=== PATIENT | male | born 1960 | race Caucasian/White ===

== ENCOUNTER 2020-05-25 10:11 | Outpatient (REF) | payer MEDICAID, SELFPAY | END 2020-05-25 10:12 | disposition home or self-care (01) | LOC: HO.LAB 10:11 | PROVIDERS: Visit Provider Internal Medicine | DX: Z20.828 Contact with and (suspected) exposure to other viral communicable diseases (principal) | CPT/HCPCS: C9803; U0003 ==

== ENCOUNTER 2021-02-16 08:14 | Emergency (ER) | payer OTHER, SELFPAY ==
--- NOTE | ~2021-02-16 | XR_ITS ---
EXAMINATION: RIGHT ANKLE, RIGHT FOOT AND RIGHT KNEE. CLINICAL INFORMATION: Pain. COMPARISON: None TECHNIQUE: 4 views right knee. 3 views right foot. 2 views right ankle. FINDINGS: Right knee: There is minimal loss of patellofemoral and medial compartment joint space. No periarticular spurring, loose bodies or bony erosive changes. No abnormal joint effusion. No acute fracture or dislocation. Right ankle: The ankle mortise and subtalar joints are normal. There is a small avulsion fracture fragment tip of anterior malleolus. The soft tissues are normal. Right foot: There is no visible acute fracture, dislocation or subluxation. The soft tissues are normal. XR/XR ankle RT min 3V IMPRESSION: Mild degenerative changes medial and patellofemoral compartment right knee. Small avulsion fracture fragment tip of anterior malleolus. Otherwise unremarkable right ankle exam. Unremarkable right foot exam.
--- NOTE | ~2021-02-16 | XR_ITS ---
EXAMINATION: RIGHT ANKLE, RIGHT FOOT AND RIGHT KNEE. CLINICAL INFORMATION: Pain. COMPARISON: None TECHNIQUE: 4 views right knee. 3 views right foot. 2 views right ankle. FINDINGS: Right knee: There is minimal loss of patellofemoral and medial compartment joint space. No periarticular spurring, loose bodies or bony erosive changes. No abnormal joint effusion. No acute fracture or dislocation. Right ankle: The ankle mortise and subtalar joints are normal. There is a small avulsion fracture fragment tip of anterior malleolus. The soft tissues are normal. Right foot: There is no visible acute fracture, dislocation or subluxation. The soft tissues are normal. XR/XR foot RT min 3V IMPRESSION: Mild degenerative changes medial and patellofemoral compartment right knee. Small avulsion fracture fragment tip of anterior malleolus. Otherwise unremarkable right ankle exam. Unremarkable right foot exam.
--- NOTE | ~2021-02-16 | XR_ITS ---
EXAMINATION: RIGHT ANKLE, RIGHT FOOT AND RIGHT KNEE. CLINICAL INFORMATION: Pain. COMPARISON: None TECHNIQUE: 4 views right knee. 3 views right foot. 2 views right ankle. FINDINGS: Right knee: There is minimal loss of patellofemoral and medial compartment joint space. No periarticular spurring, loose bodies or bony erosive changes. No abnormal joint effusion. No acute fracture or dislocation. Right ankle: The ankle mortise and subtalar joints are normal. There is a small avulsion fracture fragment tip of anterior malleolus. The soft tissues are normal. Right foot: There is no visible acute fracture, dislocation or subluxation. The soft tissues are normal. XR/XR knee RT 4V IMPRESSION: Mild degenerative changes medial and patellofemoral compartment right knee. Small avulsion fracture fragment tip of anterior malleolus. Otherwise unremarkable right ankle exam. Unremarkable right foot exam.
[2021-02-16 08:43] VITALS: BP 128/79; PULSE 78; RESP 18; TEMP 37.1; O2SAT 98; BMI 30.9
--- NOTE | 2021-02-16 09:28 | ED_ITS ---
HPI - Back Pain/Injury General Chief Complaint: Back Pain/Injury Stated Complaint: right leg pain Time Seen by Provider: 02/16/21 08:45 Source: patient Mode of arrival: ambulatory Limitations: language barrier (Hungarian-speaking) History of Present Illness HPI Narrative: 60-year-old male with a past medical history of hyperlipidemia, asthma, obstructive sleep apnea was dependent on CPAP and chronic back pain with prior back surgery being followed by [facility] presenting to the ED with complaints of acute on chronic right lower back pain radiating to his right knee/foot or the past few weeks worse today. Reports that he currently takes multiple medications which includes Motrin, Tylenol, gabapentin, tramadol and multiple other medications prescribed by his PCP and his title curative specialist although no symptomatic relief. Reports that he was getting spinal injections and then last injection was approximately 4-6 months ago. He was also referred to physical therapy although once he started physical therapy he felt like his pain was worsening therefore he is no longer doing physical therapy and is awaiting his title curative specialist for further treatment options. He reports a 2-3 weeks ago he dropped a radio on his right ankle/foot and has had a little pain/swelling at that site although he was already having worsening back pain radiating to the right knee/ankle/foot before dropping the radio on his ankle/foot. He denies any recent falls or any other injuries complaints or concerns at this time. He denies any urinary or bowel incontinence or retention He denies history of cancer. He denies history of drug usage including IV drug usage. He denies any fevers. He denies any rashes. He denies any abdominal pain or hematuria. Patient denies any other s ymptoms complaints or concerns at this time. MD elicited complaint: back pain Pertinent past history: prior back pain and back surgery Onset (ago): day(s) Timing: constant and progressively worsening Severity: severe Pain scale (0-10): 10 Similar Symptoms Previously: Yes Quality: sharp Location: lumbar spine and right lower back Radiation: right upper leg and right leg below the knee Exacerbating factors: movement and walking Relieving factors: none Associated symptoms: denies other symptoms Treatments prior to arrival: NSAIDS, acetaminophen, ASA, other medications and prescription analgesics Work related injury: No Related Data Previous Rx's Medication Instructions Recorded oxycodone 5 mg tablet 5 mg PO BID PRN #10 tab 02/16/21 Allergies Allergy/AdvReac Type Severity Reaction Status Date / Time No Known Allergies Allergy Unverified 03/23/20 17:33 [No Known Allergies*] Review of Systems Review of Systems: Constitutional : No trauma, No Weight loss, No Fever, No Chills, ENT/Mouth : No Hearing loss, No Ear Pain, No Nasal Congestion, No Sinus Pain, No Hoarseness, No sore throat, No Rhinorrhea, No Swallowing Difficulty Cardiovascular : No Chest Pain, No SOB Respiratory : No Cough, No Dyspnea Gastrointestinal : No Nausea, No Vomiting, No Diarrhea, No abdominal Pain, No Hematochezia, No Melena Genitourinary : No Dysuria, No Urinary Frequency, No Hematuria, No Urinary or Bowel Incontinence/retention Musculoskeletal : + Back pain, No neck pain, No joint stiffness, No joint swelling Skin : No Skin Lesions, No rash or signs of infection Neuro : No Weakness, No radiation, No Numbness, No Paresthesias, No headache, no loss of bowel or bladder incontinence, no saddle anesthesia, Focal weakness, No radiation Denies history of IV drug usage. Yes all other systems are reviewed and are negative [facility] Past Medical History Attestation statement: The following information was validated with the patient. Medical History Asthma Back pain Back pain with history of spinal surgery Surgical History History of appendectomy Social History Social History Alcohol intake: never Smoked in Last 30 Days: No Use of substances other than those prescribed or required for medical reasons: No Advance Directives: Yes Advance Directives on File: Yes Advance Directives Date on File: 02/16/21 Physical Exam Vital Signs: Vital Signs: Last Vital Signs Temp 98.8 F 02/16/21 08:43 Pulse 78 02/16/21 08:43 Resp 18 02/16/21 08:43 BP 128/79 02/16/21 08:43 Pulse Ox 98 02/16/21 08:43 Body Mass Index 30.9 vital signs have been reviewed as normal and appeared to be correct. Blood pressure normal. Heart rate normal. Respiration rate normal. Temperature normal. Oxygen saturation normal. Appearance: Alert. Oriented X3. No acute distress. Head: Normal external exam. Normocephalic. Atraumatic. No Castillo signs noted. No raccoon eyes noted Eyes: PERRLA. EOMI. Conjunctiva and sclera normal. Eyelids normal. ENT: EAC normal. TM's Normal. Pharynx normal. Uvula midline. Moist mucous membranes. No trismus noted. No drooling noted. No muffled voice noted. Neck: Normal inspection. Neck supple. FROM. No adenopathy. Thyroid Normal. No meningeal signs. No neck mass noted. CVS: Normal heart rate and rhythm. Heart sound normal. No murmurs noted. Pulses normal throughout. Respiratory: No respiratory distress. Painless inspiration. Breath sounds normal. No wheezes/rales/rhonchi noted. Chest nontender. No accessory muscle usage noted or decreased air movement noted. Abdomen: Soft and nontender. Bowel sounds normal in all 4 quadrants. No distention noted. No organomegaly noted. No visible injury noted. Back: No CVA tenderness. Full range of motion noted. No obvious deformities, or edema. Mild para-spinal muscular tenderness from lumbar region to coccyx. Full ROM in back and lower extremities. 5/5 strength hip extension/flexion, abduction, adduction. Mild Lumbar pain with hip flexion against resistance. Straight leg raise test negative on right; Straight leg raise test negative on left; Reflexes normal ankle and knee bilaterally; EHL motor strength normal bilaterally. No rashes/lesion/induration/fluctuance or signs infection noted. Skin: Skin warm and dry. Normal skin color. Normal skin turgor. No rashes/lesions/lacerations noted. Extremities: Patient mild tenderness to palpation to right ankle joint at the anterior aspect with mild soft tissue swelling. No ligamentous laxity noted to right knee/ankle/foot joint. No signs of infection to those joints. Patient has full range of motion of right knee/ankle/foot joint. No lower extremity edema. Otherwise all other Extremities exhibit normal range of motion and nontender. Neuro: Oriented X 3. No motor deficit. No sensory deficit. Reflexes normal. Patient has a normal steady gait. Course Course Course Narrative: Pt c likely muscular pain, but could be herniated disc. Neuro exam shows no deficits. Not c/w AAA/epidural abscess/dissection.No high risk Hx (Incont, fever, immunosupp, recent surgery/LP, coag, signif trauma, wt loss, puls mass, hx/o Ca, TB, or IVDU) to warrant MRI/CT today. Not c/w Pyelo/UTI/kidney stone/spinal fx. Not cauda equina syndrome. Will obtain an x- ray of the right knee/foot/ankle as patient dropped the radio to that joint x 3 weeks ago. If negative will DC c meds and f/u. Reevaluation(s) Reevaluation #1: Ankle revealed small avulsion fracture fragment tip of anterior malleolus otherwise unremarkable right ankle. Unremarkable right foot. Mild degenerative changes medial and patellofemoral compartment right knee otherwise no other acute processes. Therefore I explained to the patient when he dropped the radio on his ankle/foot most likely he sustained this fracture. Will place in an ortho boot and treat symptomatic we will refer to Orthopedic and instructions return if any new or worsening symptoms. Patient understands agrees with this plan. Time: 09:50 MDM - Back Pain/Injury Differential Diagnosis Differential diagnosis: Likely lumbar radiculopathy, sciatica and strain of lumbar region Medical Records Attestation: I reviewed the patient's medical records. Imaging Data Right knee/ankle/foot x-ray: Attestation: I personally reviewed and interpreted this imaging study as follows: Radiologist's impression: FINDINGS: Right knee: There is minimal loss of patellofemoral and medial compartment joint space. No periarticular spurring, loose bodies or bony erosive changes. No abnormal joint effusion. No acute fracture or dislocation. Right ankle: The ankle mortise and subtalar joints are normal. There is a small avulsion fracture fragment tip of anterior malleolus. The soft tissues are normal. Right foot: There is no visible acute fracture, dislocation or subluxation. The soft tissues are normal. XR/XR knee RT 4V IMPRESSION: Mild degenerative changes medial and patellofemoral compartment right knee. ? Small avulsion fracture fragment tip of anterior malleolus. Otherwise unremarkable right ankle exam. ? Unremarkable right foot exam.? Discharge Plan Discharge Clinical Impression: Lumbar radiculopathy, Ankle fracture Patient Disposition: Home, Self-Care Instructions: Ankle Fracture (ED), Lumbar Radiculopathy (ED), Lower Back Exercises (ED), Walking Boot (ED) Prescriptions: New oxycodone 5 mg tablet 5 mg PO BID PRN (Reason: pain) Qty: 10 RF: 0 Referrals: Jazmyne Snyder MD [Physician] - 2 days Print Language: Hungarian
== END 2021-02-16 10:30 | disposition home or self-care (01) ==
PROVIDERS: Emergency Provider Emergency Medicine
DX: S82.891A Other fracture of right lower leg, initial encounter for closed fracture (principal); M54.16 Radiculopathy, lumbar region; M79.604 Pain in right leg; M25.571 Pain in right ankle and joints of right foot; X58.XXXA Exposure to other specified factors, initial encounter; Y93.9 Activity, unspecified; Y92.9 Unspecified place or not applicable; Y99.9 Unspecified external cause status
CPT/HCPCS: 73564; 73610; 73630; 99283; 99284

== ENCOUNTER 2021-03-02 09:59 | Outpatient (REF) | payer OTHER, SELFPAY ==
--- NOTE | ~2021-03-02 | XR_ITS ---
EXAMINATION: XR ANKLE, RIGHT CLINICAL INFORMATION: Ankle pain. COMPARISON: 02/16/2021 TECHNIQUE: AP, lateral, and mortise views of the right ankle. FINDINGS: The small chip fracture of the anterior malleolus is not as well seen as it was on the 02/16/2021 study. The exam is otherwise unremarkable. No abnormality is seen in the area of the patient's lateral ankle pain. XR/XR ankle RT min 3V IMPRESSION: Small chip fracture anterior malleolus as described above. No other abnormality seen.
== END 2021-03-02 10:00 | disposition home or self-care (01) ==
LOC: HO.XRAY 09:59
PROVIDERS: PCP Physician Assistant Medical; Visit Provider Physician Assistant
DX: S93.401A Sprain of unspecified ligament of right ankle, initial encounter (principal)
CPT/HCPCS: 73610; 99202

== ENCOUNTER 2021-04-06 07:06 | Outpatient (REF) | payer OTHER, SELFPAY | END 2021-04-06 07:07 | disposition home or self-care (01) | LOC: HO.HOSX 07:06 | PROVIDERS: Visit Provider Physician Assistant | DX: Z13.89 Encounter for screening for other disorder (principal) ==

== ENCOUNTER 2021-06-22 12:08 | Outpatient (REF) | payer OTHER, SELFPAY ==
[2021-06-22 15:17] LABS: COVID-19 Test Negative (Negative); IDNOW Serial# 16C4AD1C
== END 2021-06-22 12:09 | disposition home or self-care (01) ==
LOC: HO.LAB 12:08
PROVIDERS: Visit Provider Internal Medicine
DX: Z20.822 Contact with and (suspected) exposure to COVID-19 (principal)
CPT/HCPCS: 36415; 87635; C9803

== ENCOUNTER 2021-07-02 12:02 | Outpatient (REF) | payer OTHER, SELFPAY | END 2021-07-02 12:03 | disposition home or self-care (01) | LOC: HO.LAB 12:02 | PROVIDERS: Visit Provider Internal Medicine | DX: Z20.822 Contact with and (suspected) exposure to COVID-19 (principal) | CPT/HCPCS: C9803; U0003; U0005 ==

== ENCOUNTER 2021-07-09 10:56 | Outpatient (REF) | payer OTHER, SELFPAY ==
[2021-07-09 11:47] LABS: COVID-19 Test Negative (Negative)
== END 2021-07-09 10:57 | disposition home or self-care (01) ==
LOC: HO.LAB 10:56
PROVIDERS: Visit Provider Internal Medicine
DX: Z20.822 Contact with and (suspected) exposure to COVID-19 (principal)
CPT/HCPCS: 36415; 87635; C9803

== ENCOUNTER 2023-06-15 17:46 | Emergency (ER) | payer MEDICARE, MEDICAID, SELFPAY ==
--- NOTE | ~2023-06-15 | XR_ITS ---
EXAMINATION: XR ANKLE, LEFT XR TIBIA AND FIBULA, LEFT CLINICAL INFORMATION: Pain COMPARISON: None TECHNIQUE: AP, lateral, and mortise views of the left ankle. AP and lateral views of the left tibia and fibula FINDINGS: Left tibia and fibula: Soft tissues are swollen diffusely. Bautista B distal fibular fracture and a medial malleolar fracture with mild displacement. There is more focal surrounding soft tissue swelling. No additional fractures are identified. Imaged portion of knee joint is unremarkable. Left ankle: Lateral malleolar fragment at the Bautista B distal fibular fracture is displaced posteriorly up to 5 mm . Fragment is minimally displaced (1 to 2 mm). There is widening at the medial ankle mortise. Soft tissues are swollen at the ankle. Incidental note is made of a lucent 1.4 cm focus in the distal fibular shaft with scalloping of the medial endosteal cortex. XR/XR ankle LT 2V IMPRESSION: 1. Mildly displaced Bautista B distal fibular fracture. 2. Minimally displaced medial malleolar fracture. 3. Widening of the medial ankle mortise. 4. A 1.4 cm lucent focus in the distal fibular shaft with scalloping of the medial endosteal cortex. Consider obtaining a CT of the ankle to include the lesion in the distal fibular diaphysis, both for surgical planning of the aforementioned fracture and for lesion assessment.
--- NOTE | ~2023-06-15 | XR_ITS ---
EXAMINATION: XR ANKLE, LEFT XR TIBIA AND FIBULA, LEFT CLINICAL INFORMATION: Pain COMPARISON: None TECHNIQUE: AP, lateral, and mortise views of the left ankle. AP and lateral views of the left tibia and fibula FINDINGS: Left tibia and fibula: Soft tissues are swollen diffusely. Bautista B distal fibular fracture and a medial malleolar fracture with mild displacement. There is more focal surrounding soft tissue swelling. No additional fractures are identified. Imaged portion of knee joint is unremarkable. Left ankle: Lateral malleolar fragment at the Bautista B distal fibular fracture is displaced posteriorly up to 5 mm . Fragment is minimally displaced (1 to 2 mm). There is widening at the medial ankle mortise. Soft tissues are swollen at the ankle. Incidental note is made of a lucent 1.4 cm focus in the distal fibular shaft with scalloping of the medial endosteal cortex. XR/XR tibia fibula LT 2V IMPRESSION: 1. Mildly displaced Bautista B distal fibular fracture. 2. Minimally displaced medial malleolar fracture. 3. Widening of the medial ankle mortise. 4. A 1.4 cm lucent focus in the distal fibular shaft with scalloping of the medial endosteal cortex. Consider obtaining a CT of the ankle to include the lesion in the distal fibular diaphysis, both for surgical planning of the aforementioned fracture and for lesion assessment.
--- NOTE | ~2023-06-15 | XR_ITS ---
EXAMINATION: XR HIP, LEFT CLINICAL INFORMATION: Fall. Pain. COMPARISON: None available. TECHNIQUE: AP and frog-leg lateral views of the left hip. AP view of the pelvis. FINDINGS: Minimal osteoarthritis is present in the hips, right greater than left, with small marginal osteophytes. Subchondral cystic changes present at the right acetabulum. No fractures are identified. Bone mineralization is normal. Mild osteoarthritis in the SI joints. There is Castellvi type IIA transitional anatomy on the right at the lumbosacral junction. Fusion hardware in the lower lumbar spine at L4-L5. Spinal stimulator unit overlies the left hemipelvis. No acute soft tissue findings. XR/XR hip LT w PEL1V IMPRESSION: 1. Minimal osteoarthritis in the hips, right greater than left. No acute fracture or malalignment. 2. Mild osteoarthritis in the SI joints.
--- NOTE | ~2023-06-15 | XR_ITS ---
EXAMINATION: XR LUMBOSACRAL SPINE CLINICAL INFORMATION: Pain. History of chronic back pain. COMPARISON: None available. TECHNIQUE: Three views of the lumbosacral spine. FINDINGS: Posterior fusion hardware at the lower lumbar spine is intact with pedicle screws and vertical rods at L3 and L4 which appear appropriately positioned and intact. There is osseous bridging across the facet joints from L3 through S1. Status post posterior central canal decompression at L4-L5. A spinal stimulator device overlies the left hemipelvis with leads extending cephalad into the lower thoracic spine. There is Castellvi type IIA transitional anatomy on the right at the lumbosacral junction with a sacralized L5. Facet arthropathy is present at L2-L3 with mild degenerative disc disease at both L1-L2 and L2-L3, characterized primarily by endplate osteophytes. No fractures. Vertebral body heights appear normal. No acute soft tissue findings. Sacrum and coccyx appear intact. XR/XR lumbar spine 2-3V IMPRESSION: 1. Intact posterior fusion hardware at L3 and L4 with osseous bridging across the facet joints. Status post central canal decompression at L4-L5. 2. Mild degenerative disc disease and facet arthropathy in the upper lumbar spine. No acute osseous findings.
[2023-06-15 19:01] VITALS: BP 134/85; PULSE 94; RESP 22; TEMP 36.9; O2SAT 97; BMI 29.7
[2023-06-15 19:42] VITALS: RESP 20
[2023-06-15] MEDS: ondansetron HCL 4 MG/2 ML VIAL IVPUSH (19:42)
[2023-06-15] MEDS: Morphine Sulfate 4 MG/ML CARTRIDGE IVPUSH (19:42)
--- NOTE | 2023-06-15 19:49 | ED_ITS ---
HPI - Extremity Problem General Chief complaint: Extremity Problem Stated complaint: fell left leg pain Time Seen by Provider: 06/15/23 19:19 Source: patient and family Mode of arrival: wheelchair Limitations: no limitations History of Present Illness HPI Narrative: 61 year-old male with a past medical history of hyperlipidemia, asthma, obstructive sleep apnea was dependent on CPAP and chronic back pain with prior back surgery here with complaints of slip and fall down approximately 5-8 stairs twisting his left ankle/foot. Denies hitting head or LOC. Here with complaints of pain to left ankle with diff bearing weight due to pain. No associated weakness, numbness or tingling of the injury. Reports he landed on buttocks. No reports of worsening back pain, chest pain or abdominal pain. No headache, neck pain, vision changes or vomiting. Of note patient reports he had several beers before coming in today. Related Data Previous Rx's Medication Instructions Recorded oxycodone 5 mg tablet 5 mg PO BID PRN pain #10 tabs 02/16/21 ibuprofen 600 mg tablet 600 mg PO TID PRN pain #30 tabs 06/15/23 oxycodone 5 mg tablet 5 mg PO Q6H PRN pain #12 tabs 06/15/23 walker #1 ea 06/15/23 Allergies Allergy/AdvReac Type Severity Reaction Status Date / Time No Known Allergies Allergy Verified 06/15/23 19:24 [No Known Allergies*] Review of Systems Review of Systems: Yes all other systems are reviewed and are negative Constitutional: Constitutional: Reports no additional constitutional complaints, Denies body ache(s), Denies chills, Denies fever(s), Denies headache(s) and Denies weakness Eyes: Eyes: Reports no additional eye complaints and Denies change in vision ENT: Reports system reviewed and no additional complaints, except as documented, Denies dizziness, Denies headache(s), Denies nasal congestion, Denies nasal discharge and Denies neck pain Cardiovascular: Cardiovascular: Reports no additional cardiovascular complaints, Denies chest pain, Denies leg edema and Denies dyspnea Respiratory: Respiratory: Reports no additional respiratory complaints, Denies cough and Denies dyspnea Gastrointestinal: Gastrointestinal: Reports no additional gastrointestinal complaints, Denies abdominal pain, Denies diarrhea, Denies nausea and Denies vomiting Genitourinary: Genitourinary: Denies urinary incontinence Musculoskeletal: Musculoskeletal: Reports no additional musculoskeletal complaints, Denies back pain, Reports arthralgias, Reports joint swelling, Reports limited range of motion, Denies neck pain, Denies numbness and Denies tingling Integumentary/Breasts: Skin/Breast: Reports system reviewed and no additional complaints, except as docu and Denies rash Neurologic: Reports system reviewed and no additional complaints, except as documented, Denies Abnormal speech present, Denies dizziness, Denies headache(s), Denies numbness, Denies tingling and Denies weakness PMFSH Past Medical History Attestation statement: The following information was validated with the patient. 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 Physical Exam Vital Signs: Vital Signs: Last Vital Signs Temp 98.4 F 06/15/23 19:01 Pulse 94 06/15/23 19:01 Resp 20 06/15/23 20:20 BP 134/85 06/15/23 19:01 Pulse Ox 97 06/15/23 19:01 O2 Del Method Room Air 06/15/23 19:01 BMI result Body Mass Index 29.7 Const: General: cooperative, healthy appearing, comfortable and no acute distress Orientation/consciousness: patient oriented x3 Limitations: no limitations HEENT: Head: Yes normal to inspection, No Castillo's sign and No raccoon eyes Ears: hearing grossly normal bilaterally and TM's normal bilaterally General nose exam: Normal external nose present Face and sinus: Yes normal facial exam Mouth: Normal oral and palatal mucosa present Throat: Yes posterior oropharynx normal Eyes: General: appearance normal, both eyes and all related structures Pupils: Equal, round and reactive pupils present Neck: Other: No cervical midlines tenderness, step offs or deformities Neck: Yes normal visual inspection and Yes full ROM Chest: Chest palpation & inspection: normal inspection of the chest Resp: Effort & Inspection: normal respiratory effort Auscultation: clear to auscultation bilaterally Cardio: Rate: regular rate Rhythm: regular rhythm Peripheral pulses: Peripheral pulses 2+ throughout GI: Inspection: Yes normal to inspection Palpation (GI): Soft to palpation and nontender Auscultation: normal bowel sounds Back/Spine/Pelvis: Thoracic/Lumbar Spine: thoracic and lumbar spine normal to inspection Skin: General skin exam: no rashes or lesions noted Neuro: General: patient oriented x3, moves all extremities, no focal motor deficits and normal sensation to monofilament Cranial nerves: Yes CN's II-XII intact bilaterally, Yes Equal, round and reactive pupils present, Yes Bilaterally intact EOM present, Yes Nystagmus not present and Yes Normal facial strength present Cognition (Neuro): normal cognition Speech: No Abnormal speech present Motor exam (neuro): 5/5 motor strength present throughout Sensory Exam: Normal double simultaneous stimulation for sensation Extrem: Other: +swelling to left ankle diffusely with t enderness. 2+ DP and PT pulses. Normal sensation. Active ROM of the ankle normal. No foot tenderness. NO palpable tenderness over left knee/left hip/left femur or left tib/fib with FROM. Course Course Course Narrative: -Patient splinted. Now c/o acute on chronic lower back pain and left hip. Will check x-rays. Patient has issues with ambulation secondary to chronic back pain and family is concerned crutches might be difficult. I will give then an rx but patient cannot WB which they are aware of. He has had several alcoholic beverages before coming in and he may need a period of observation before he can be discharged home. Reevaluation(s) Reevaluation #1: 2100-Sign out to MIRLANDE ZAMARRIPA pending repeat x-rays Reevaluation #2: Received sign-out with the patient in stable condition pending additional x- rays. Time: 21:00 Reevaluation #3: X-rays returned of the hip and lumbar spine, no acute process. Reviewed all discharge instructions and the patient. No further questions at this time. Time: 21:58 Medications Administered Discontinued Medications Generic Name Dose Route Start Last Admin Trade Name Freq PRN Reason Stop Dose Admin Hydromorphone HCl 0.5 mg 06/15/23 20:15 06/15/23 20:20 Hydromorphone Hcl 0.5 Mg/0.5 Ml Syringe IVPUSH 06/15/23 20:16 0.5 mg ONCE ONE Administration Protocol Morphine Sulfate 4 mg 06/15/23 19:24 06/15/23 19:42 Morphine Sulfate 4 Mg/Ml Cartridge IVPUSH 06/15/23 19:25 4 mg ONCE ONE Administration Protocol Ondansetron HCl 4 mg 06/15/23 19:24 06/15/23 19:42 Ondansetron Hcl 4 Mg/2 Ml Vial IVPUSH 06/15/23 19:25 4 mg ONCE ONE Administration Medical Decision Making Medical Decision Making MDM Narrative: 61 year-old male with a past medical history of hyperlipidemia, asthma, obstructive sleep apnea was dependent on CPAP and chronic back pain with prior back surgery here with complaints of slip and fall down approximately 5-8 stairs twisting his left ankle/foot. Denies hitting head or LOC. Here with complaints of pain to left ankle with diff bearing weight due to pain. No associated weakness, numbness or tingling of the injury. Reports he landed on buttocks. No reports of worsening back pain, chest pain or abdominal pain. No headache, neck pain, vision changes or vomiting. Of note patient reports he had several beers before coming in today. +swelling to left ankle diffusely with tenderness. 2+ DP and PT pulses. Normal sensation. Active ROM of the ankle normal. No foot tenderness. NO palpable tenderness over left knee/left hip/left femur or left tib/fib with FROM. Patient quite uncomfortable. Concern for fracture/dislocation. Will obtain x- rays and provide analgesia. Differential Diagnosis Differential Diagnoses: The differential diagnosis associated with the pres entation includes fx, dislocation, sprain/strain low concern for vascular injury Admission/Observation Consideration of admission/observation: Escalation of care including admission/observation considered Low concern for vascular injury/dislocation requiring advanced imaging, urgent ortho consult and admission Consult Healthcare Provider Management of the patient was discussed with: Watch Assembly Inspector I spoke to orthopedics-recommend outpatient fu Independent Interpretation I performed an independent interpretation of an: Plain X-Ray Radiology Impression Discussion of test interpretation with radiology: I have reviewed the radiologist's reading. Radiologist Impression: [address] [place] [address] XRay Report Signed Patient: Rico Pennington MR#: [id number] : 1960 Acct:[id number] Age/Sex: 63 / M ADM Date: 06/15/23 Loc: HO.ED Attending Dr: Ordering Physician: Ema Escobar NP Date of Service: 06/15/23 Procedure(s): XR hip LT w PEL1V Accession Number(s): [id number] cc: Physician,Unknown ; Ema Escobar SENIOR SQL SERVER DATABASE DEVELOPER~ EXAMINATION: XR HIP, LEFT CLINICAL INFORMATION: Fall. Pain. COMPARISON: None available. TECHNIQUE: AP and frog-leg lateral views of the left hip. AP view of the pelvis. FINDINGS: Minimal osteoarthritis is present in the hips, right greater than left, with small marginal osteophytes. Subchondral cystic changes present at the right acetabulum. No fractures are identified. Bone mineralization is normal. Mild osteoarthritis in the SI joints. There is Castellvi type IIA transitional anatomy on the right at the lumbosacral junction. Fusion hardware in the lower lumbar spine at L4-L5. Spinal stimulator unit overlies the left hemipelvis. No acute soft tissue findings. XR/XR hip LT w PEL1V IMPRESSION: 1. Minimal osteoarthritis in the hips, right greater than left. No acute fracture or malalignment. 2. Mild osteoarthritis in the SI joints. Dictated By: n Signed By: <Electronically signed by n in [place]> 06/15/232139 DD/ 23 TD/TT: Delicatessen Clerk: SCAR [address] [address] XRay Report Signed Patient: Rico Pennington MR#: [id number] : 1960 Acct:[id number] Age/Sex: 63 / M ADM Date: 06/15/23 Loc: HO.ED Attending Dr: Ordering Physician: Ema Escobar NP Date of Service: 06/15/23 Procedure(s): XR lumbar spine 2-3V Accession Number(s): [id number] cc: Physician,Unknown ; Ema Escobar NP~ EXAMINATION: XR LUMBOSACRAL SPINE CLINICAL INFORMATION: Pain. History of chronic back pain. COMPARISON: None available. TECHNIQUE: Three views of the lumbosacral spine. FINDINGS: Posterior fusion hardware at the lower lumbar spine is intact with pedicle screws and vertical rods at L3 and L4 which appear appropriately positioned and intact. There is osseous bridging across the facet joints from L3 through S1. Status post posterior central canal decompression at L4-L5. A spinal stimulator device overlies the left hemipelvis with leads extending cephalad into the lower thoracic spine. There is Castellvi type IIA transitional anatomy on the right at the lumbosacral junction with a sacralized L5. Facet arthropathy is present at L2-L3 with mild degenerative disc disease at both L1-L2 and L2-L3, characterized primarily by endplate osteophytes. No fractures. Vertebral body heights appear normal. No acute soft tissue findings. Sacrum and coccyx appear intact. XR/XR lumbar spine 2-3V IMPRESSION: 1. Intact posterior fusion hardware at L3 and L4 with osseous bridging across the facet joints. Status post central canal decompression at L4-L5. 2. Mild degenerative disc disease and facet arthropathy in the upper lumbar spine. No acute osseous findings. Dictated By: n Signed By: <Electronically signed by n in OV> 06/15/232142 DD/ 23 TD/TT: Delicatessen Clerk: SCAR Independent Historian Clinical information obtained from an independent historian. History obtained from or confirmed by: Spouse Tests considered The following testing was considered but not selected: Low concern for vascular injury/dislocation requiring advanced imaging Prescription Management I considered prescription management with: Pain Medication Procedures Orthopedic Splinting/Casting Injury #1: Side: left Lower Extremity Injury Location: lower leg and ankle Lower Extremity Immobilizer: posterior splint and stirrup splint Other Orthopedic Equipment: crutches Discharge Plan Discharge Clinical Impression: Ankle fracture, left Patient Disposition: Home, Self-Care Instructions: Ankle Fracture (ED), Crutch Instructions (ED), Splint Care (ED) Additional Instructions: Call orthopedics tomorrow to be seen Elevate the extremity, use the crutches for ambulation Do not get the splint wet. Keep it dry at all times. Prescriptions: New oxycodone 5 mg tablet 5 mg PO Q6H PRN (Reason: pain) Qty: 12 0RF Rx Instructions: Partial Fill upon patient request. ibuprofen 600 mg tablet 600 mg PO TID PRN (Reason: pain) Qty: 30 0RF (DME) walker Misc See Rx Instructions .Route Qty: 1 0RF Rx Instructions: As directed No Action oxycodone 5 mg tablet 5 mg PO BID PRN (Reason: pain) Qty: 10 0RF Referrals: [facility] [place] [facility] [Provider Group] - 1 week
[2023-06-15 20:20] VITALS: RESP 20
[2023-06-15] MEDS: HYDROmorphone HCl 0.5 MG/0.5 ML SYRINGE IVPUSH (20:20)
[2023-06-15 22:04] VITALS: BP 115/69; PULSE 93; RESP 18; O2SAT 98
== END 2023-06-15 22:14 | disposition home or self-care (01) ==
PROVIDERS: Emergency Provider Emergency Medicine
DX: S82.62XA Displaced fracture of lateral malleolus of left fibula, initial encounter for closed fracture (principal); W10.8XXA Fall (on) (from) other stairs and steps, initial encounter; Y93.9 Activity, unspecified; Y92.9 Unspecified place or not applicable; Y99.9 Unspecified external cause status
CPT/HCPCS: 29515; 72100; 73502; 73590; 73600; 96374; 96375; 99284; J1170; J2270; J2405

== ENCOUNTER 2025-06-29 11:30 | Emergency (ER) | payer MEDICARE, SELFPAY ==
[2025-06-29] VITALS (9 sets, daily range): BP systolic 123–152; BP diastolic 64–80; PULSE 80–103; RESP 18–28; TEMP 36.5–36.7; O2SAT 95–99; BMI 28.1
--- NOTE | ~2025-06-29 | CT_ITS ---
EXAMINATION: CT ABDOMEN AND PELVIS WITH CONTRAST CLINICAL INFORMATION: Abdominal distention, pain COMPARISON: None available. TECHNIQUE: Multidetector volumetric images were obtained from the superior aspect of the liver through the pubic symphysis following administration 85 mL of Omnipaque 350 intravenous contrast. Sagittal and coronal reformatted images were obtained on the technologist's workstation. Oral contrast: No This CT examination was performed using dose optimization techniques as appropriate, variously including the following: *Automated exposure control *Adjustment of mA and/or kV according to patient size (this includes techniques or standardized protocols for targeted exams where dose is matched to indication/reason for exam; i.e. extremities or head) *Use of iterative reconstruction technique FINDINGS: LUNG BASES: See chest CT report LIVER, GALLBLADDER, AND BILIARY TREE: Hepatomegaly. Right lobe measures 19.7 cm craniocaudal.. No focal hepatic lesion or biliary ductal dilatation is present. The gallbladder is unremarkable with no evidence of radiopaque gallstones, gallbladder wall thickening, or obvious pericholecystic inflammatory changes. Normal caliber CBD PANCREAS: Unremarkable. SPLEEN: Unremarkable. ADRENAL GLANDS: Unremarkable. KIDNEYS AND URETERS: Symmetric enhancement. No suspicious lesions. No hydronephrosis, hydroureter, or calculi seen. No perinephric stranding. BLADDER: Unremarkable. GASTROINTESTINAL TRACT: Suboptimal distention limits evaluation of the stomach. No dilated small bowel loops. Large colon is nondistended. Scattered colonic diverticuli. No findings to diverticulitis. Small-moderate volume stool in the large colon. Appendix appears unremarkable. Mesentery: No pneumoperitoneum. No ascites. No mesenteric mesenteric edema. No fluid collections. ABDOMINAL WALL: No significant hernia is appreciated. No subcutaneous fluid collections. LYMPH NODES: No pathologically enlarged lymph nodes. VASCULAR: Normal caliber aorta. The celiac, SMA, WILFREDO are enhancing. Normal enhancement of the portal vein. PELVIC VISCERA: Enlarged prostate measuring 4.9 cm. OSSEOUS STRUCTURES: Posterior fusion hardware at L3-4. Intact hardware. Intervertebral disc spacer at L4-5. No destructive osseous process is seen. Spinal stimulator device in the left gluteal region, with leads extending to the spine. CT/CT abdomen pelvis w IV con IMPRESSION: * No acute intra-abdominal findings are identified. Cause of the patient's symptoms has not been determined. * Scattered colonic diverticuli without evidence of diverticulitis. * Hepatomegaly * Additional findings and details as above. Fleischner guidelines were followed. Electronically signed by: Levi Funk MD 06/29/2025 02:13 PM [facility]
--- NOTE | ~2025-06-29 | XR_ITS ---
EXAMINATION: XR CHEST CLINICAL INFORMATION: cough COMPARISON: None available. TECHNIQUE: 2 views of the chest were obtained. FINDINGS: No significant abnormality is noted involving the heart, lungs, mediastinum, bony thorax or soft tissues. XR/XR chest 2V IMPRESSION: Unremarkable examination. Electronically signed by: Miguel Morales MD 06/29/2025 12:07 PM [facility]
--- NOTE | ~2025-06-29 | CT_ITS ---
EXAMINATION: CT ANGIOGRAM CHEST CLINICAL INFORMATION: Dyspnea COMPARISON: None available. TECHNIQUE: Multiple axial images were obtained through the chest after the administration of 85 mL of Omnipaque 350 intravenous contrast. Extensive vascular post-processing including two-dimensional and three-dimensional reformatted images were created and reviewed on an independent workstation. This CT examination was performed using dose optimization techniques as appropriate, variously including the following: *Automated exposure control *Adjustment of mA and/or kV according to patient size (this includes techniques or standardized protocols for targeted exams where dose is matched to indication/reason for exam; i.e. extremities or head) *Use of iterative reconstruction technique FINDINGS: Vascular: There is good opacification of thoracic aorta and its branches without any aneurysmal filling defect or dissection. The pulmonary artery is well-opacified without intraluminal filling defect or narrowing. Heart size is normal. No pericardial effusion seen. Nonvascular: Both lungs well-expanded and clear acute pneumonic process. Mild dependent atelectatic changes are seen in both lung bases. A 5 mm calcified nodule is seen in right upper lobe axial image 32/23. There is no pulmonary nodule, mass or consolidation. There is no pleural effusion or thickening. The axillae and the chest wall is unremarkable. Visualized liver and spleen is unremarkable. No gross bony abnormality seen. No aggressive lytic or sclerotic process seen. There is a posterior epidural spinal electrodes in lower dorsal spine. CT/CT angio chest PE protocol IMPRESSION: No evidence of PE. No evidence of aortic aneurysm or dissection. Minimal bibasilar dependent atelectasis Fleischner guidelines were followed. Electronically signed by: Miguel Morales MD 06/29/2025 01:59 PM EST
--- NOTE | 2025-06-29 11:50 | ED_ITS ---
HPI - General Adult General Chief complaint: Dyspnea Stated complaint: SOB, asthma Time Seen by Provider: 06/29/25 12:05 Source: patient Mode of arrival: ambulatory Limitations: no limitations History of Present Illness ED Provider: GWEN BURNS PA-C HPI narrative: 65 year old male with pmhx significant for asthma, ALEX on CPAP presents to the ED today for evaluation of shortness of breath and productive cough x10 days. He was evaluated at - started on 5 day course of prednisone without improvement. He complete the course today without improvement. He was not started on any antibiotics or provided with inhaler. He presents today with worsening symptoms. Cough is productive of yellow sputum. He also reports acute onset of right sided abdominal pain x3 days after a coughing fit which has now spread to his entire abdomen. Admits to associated abdominal bloating. Last BM this was normal - denies recent constipation or diarrhea. Denies any hx of abdominal surgeries. Denies fever, chills, nausea, vomiting, chest pain, urinary sx, LE pain/swelling. He takes a baby aspirin daily, no thinners. Related Data Previous Rx's ?Medication ?Instructions ?Recorded oxycodone 5 mg tablet 5 mg PO BID PRN pain #10 tab s 02/16/21 ibuprofen 600 mg tablet 600 mg PO TID PRN pain #30 t abs 06/15/23 oxycodone 5 mg tablet 5 mg PO Q6H PRN pain #12 tab s 06/15/23 walker #1 ea 06/15/23 codeine 7.5 mg-guaifenesin 225 7.5 ml PO Q4-6H PRN cou gh #473 mL 06/29/25 mg/5 mL oral liquid prednisone 10 mg tablet 10 mg PO DIRECTED #30 tab s 06/29/25 Allergies Allergy/AdvReac Type Severity Reaction Status Date / Time No Known Allergies (No Known Allergy Verified 06/29/25 11:52 Allergies*) Review of Systems 2 Review of Systems: Yes all other systems are reviewed and are negative PMFSH Past Medical History Attestation statement: The following information was validated with the patient. 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 Physical Exam ED Vital Signs: Vital Signs - 24 hr 06/29/25 11:48 06/29/25 12:08 06/29/25 12:08 Temperature 98.1 F Pulse Rate 80 88 96 Respiratory Rate 24 H 24 H 26 H Blood Pressure 142/79 H 152/80 H Pulse Oximetry 95 98 Oxygen Delivery Method Room Air Room Air 06/29/25 13:38 06/29/25 13:59 06/29/25 14:10 Temperature 97.7 F Pulse Rate 102 H 102 H 94 Respiratory Rate 26 H 26 H 28 H Blood Pressure 134/72 129/68 Pulse Oximetry 95 95 Oxygen Delivery Method Room Air Room Air 06/29/25 14:53 06/29/25 15:46 06/29/25 16:04 Temperature 97.8 F Pulse Rate 103 H 89 92 Respiratory Rate 18 22 H 27 H Blood Pressure 124/65 127/68 123/64 Pulse Oximetry 95 95 95 Oxygen Delivery Method Room Air Room Air Room Air 06/29/25 17:01 Temperature 98.0 F Pulse Rate 92 Respiratory Rate 27 H Blood Pressure 123/64 Pulse Oximetry 95 Oxygen Delivery Method Room Air BMI result Body Mass Index 28.1 patient tachypneic, hypertensive, not hypoxic or tachycardic General: ill appearing Skin: Warm, dry, intact. No rashes or lesions. Head: Normocephalic, atraumatic. EENT: Hearing is intact b/l. Conjunctiva clear. PERRLA. EOM intact. Moist mucous membranes.? Cardiac: Chest wall symmetric. RRR Lungs: Mild respiratory distress, speaking in 2-3 word sentences, increased work of breathing, no tripoding, lungs sounds diminished with diffuse expiratory wheezes throughout Abdomen: Distended, soft, diffusely tender, no rebound or guarding, active bowel sounds x4. negative mcginnis, no mcburney point tenderness Back: No midline spinous or paraspinal tenderness. No step off deformity. Ext: no pitting edema, no calf tenderness b/l Neuro: AOx3. Normal speech. Ambulating with steady gait. Course Course Course Narrative: This is a rapid medical exam performed by Leelee Roche NP: Additional HPI, ROS, PE not included below will be deferred to primary provider. Patient is a 65y/o M with pmhx of COPD, ALEX on CPAP, asthma presnting with 10 days of cough and shortness of breath, increased WOB. Went to clinic and was given prednisone, sxs not improving. Plan: labs, viral serology, CXR Reevaluation(s) Reevaluation #1: 1228 -- CBC without leukocytosis or left shift. No anemia, H and H stable. Chemistry without acute electrolyte abnormality requiring intervention. No CELSO. ALT mildly elevated to 67, liver function otherwise WNL. his lactic is elevated at 5.9 - this may be secondary to albuterol tx as this was drawn directly after. > I have added on Solu-Medrol, magnesium for breathing 1248 -- Patient actively vomiting - zofran ordered. concern for acute intra abdominal pathology. spoke with distribution field technician who is grabbing him for scan now. he does not meet criteria for sepsis however I am covering him with fluids and zosyn. 1401 -- pt still nauseous, no vomiting. reglan and benadryl ordered. morphine ordered for pain. patient is now tachycardic, likely secondary to albuterol however he meets criteria for sepsis at this time. sepsis alert called. Sepsis fluids ordered. Patient already received 1 L of normal saline. Another 1,368 mls ordered for 30 cc/kg. > CT images uploaded, on a/p scan I do not appreciate any free air to suggest bowel perforation or air/fluid levels to suggest obstruction. official read pending. 1445 -- CTA angio chest does not demonstrate pulmonary emboli or pneumonia. CT abdomen/pelvis is quite unremarkable. There is hepatomegaly and scattered colonic diverticula without evidence of diverticulitis. There is no bowel obstruction, no bowel perforation, no evidence of appendicitis. There are small to moderate stool throughout the colon. unclear etiology of symptoms. > on re-eval, patient still appears dyspneic, speaking in 2-3 word sentences. diaphoretic. satting 95% on RA. he states his abdominal pain has improved with morphine. no further episodes of vomiting. 1500 -- trop/bnp still pending. patient stable at this time. sign out given to Dr. Gardner pending labs/ disposition. Anticipate admission to medicine for management of asthma exacerbation. Medications Administered Discontinued Medications Generic Name Dose Route Start Last Admin Trade Name Vane PRN Reason Stop Dose Admin Albuterol Sulfate 5 mg/ 0 mg 06/29/25 12:08 06/29/25 12:09 Albuterol/Ipratropium 3 ml INHALE 06/29/25 12:09 1 each ONCE ONE Administration Diphenhydramine HCl 25 mg 06/29/25 13:57 06/29/25 14:05 Diphenhydramine Hcl 50 Mg/Ml Vial IVPUSH 06/29/25 13:58 25 mg ONCE ONE Administration Magnesium Sulfate 2 gm in 50 mls @ 150 mls/hr 06/29/25 12:28 06/29/25 13:04 Magnesium Sulfate/H2o IV 06/29/25 12:47 Infused ONCE ONE Infusion Piperacillin Sod/Tazobactam 100 mls @ 200 mls/hr 06/29/25 13:21 06/29/25 14:07 Sod 4.5 gm/ Sodium Chloride IV 06/29/25 13:50 Infused ONCE ONE Infusion Sodium Chloride 1,000 mls @ 999 mls/hr 06/29/25 13:30 06/29/25 15:43 Ns IV 06/29/25 14:30 Infused .Q1H1M RITESH Infusion Sodium Chloride 1,368 mls @ 999 mls/hr 06/29/25 14:15 06/29/25 15:43 Ns IV 06/29/25 15:37 Infused .Q1H23M RITESH Infusion Iohexol 100 ml 06/29/25 13:31 06/29/25 13:32 Iohexol 350 Mg/Ml 100 Ml Infus..Btl IV 06/29/25 13:32 85 ml ONCE ONE Administration Levalbuterol HCl 3.75 mg 06/29/25 13:45 06/29/25 13:57 Levalbuterol Hcl 1.25 Mg/3 Ml Vial.Neb INHALE 06/29/25 13:46 3.75 mg ONCE ONE Administration Methylprednisolone Sodium Succinate 80 mg 06/29/25 12:28 06/29/25 12:44 Methylprednisolone Sod Succ 125 Mg/2 Ml Vial IVPUSH 06/29/25 12:29 80 mg ONCE ONE Administration Metoclopramide HCl 10 mg 06/29/25 13:57 06/29/25 14:04 Metoclopramide Hcl 10 Mg/2 Ml Vial IVPUSH 06/29/25 13:58 10 mg ONCE ONE Administration Morphine Sulfate 4 mg 06/29/25 13:57 06/29/25 14:05 Morphine Sulfate 4 Mg/Ml Cartridge IVPUSH 06/29/25 13:58 4 mg ONCE ONE Administration Protocol Ondansetron HCl 4 mg 06/29/25 12:48 06/29/25 12:52 Ondansetron Hcl 4 Mg/2 Ml Vial IVPUSH 06/29/25 12:49 4 mg ONCE ONE Administration Medical Decision Making Medical Decision Making MDM Narrative: 65 year old male with pmhx significant for asthma/COPD, ALEX on CPAP presents to the ED today for evaluation of shortness of breath and productive cough x10 days. tachypneic. Mild respiratory distress, speaking in 2-3 word sentences, increased work of breathing, no tripoding, lungs sounds diminished with diffuse expiratory wheezes throughout. Differential diagnosis includes viral syndrome, bronchitis, pneumonia, asthma exacerbation, PE, ACS, arrhythmia, acute abdomen, bowel perforation, constipation, SBO Plan for labs, imaging, ekg, bronch tx I received sign-out from my colleague MARILOU Burns -troponin and BNP did not show any significant acute abnormality. -patient is no longer wheezing at this time, but he does seem a bit short of breath and tachypneic. Patient states that he is feeling much better and feels ready to go home, patient states that there is no way that we will be able to convince him to stay in the hospital on [facility]. -patient's tried to convince him to stay hospitalized. However, patient is insistent to go home. Patient was ambulated around the emergency room, oxygen saturation stayed at 96% on room air, no oxygen desaturations, no dizziness, no chest pain -patient requesting cough medication. Patient agrees that if he has any worsening symptoms or if he is not getting better, he needs to return to emergency room. It has been 10 days since he has been treated for this asthma exacerbation/bronchitis and not making much of a progress. However, patient is adamant about going home Differential Diagnosis Differential Diagnoses: The differential diagnosis associated with the presentation includes as above. Admission/Observation Consideration of admission/observation: Escalation of care including admission/observation considered (Admission was recommended but patient respectfully declined) Consult Healthcare Provider Management of the patient was discussed with: Hospitalist Lab Data MDM Lab Attestation statement: I reviewed the patient's lab results. as above. 06/29/25 12:09 06/29/25 12:09 Labs: Lab Results 06/29/25 06/29/25 06/29/25 Range/Units 12:09 12:21 12:57 WBC 10.1 (4.8-10.8) X10*3/uL RBC 4.79 (4.60-5.80) X10*6/uL Hgb 14.2 (14.0-18.0) g/dl Hct 42.6 (42.0-52.0) % MCV 88.9 (80.0-98.0) fL MCH 29.6 (27.0-33.0) pg MCHC 33.3 (31.0-36.0) g/dl RDW 13.9 (11.0-16.0) % Plt Count 325 (160-400) X10*3/uL MPV 8.9 L (9.4-12.4) fL Immature Gran % (Auto) 2.6 H (0.0-0.4) % Neut % (Auto) 66.3 (45-73) % Lymph % (Auto) 21.7 (20-40) % [place] % (Auto) 9.0 (2-11) % Eos % (Auto) 0.1 (0-4) % Baso % (Auto) 0.3 (0-2) % Lymph # (Auto) 2.2 (1.2-4.9) X10*3/uL [place] # (Auto) 0.9 (0.1-1.2) X10*3/uL Eos # (Auto) 0.0 (0.0-0.4) X10*3/uL Baso # (Auto) 0.0 (0.0-0.2) X10*3/uL Abs Immat Gran (auto) 0.26 H (0.00-0.03) X10*3/uL Absolute Neuts (auto) 6.7 (2.0-8.3) x10*3/uL Absolute Nucleated RBC 0.000 (0.0-0.012) X10*3/uL Nucleated RBC % (auto) 0.0 (0.0-0.2) /100WBC VBG pH 7.62 H* (7.32-7.43) VBG pCO2 23 mmHg VBG pO2 154 mmHg VBG HCO3 23 (22-26) mmol/L VBG O2 Saturation 100.0 % VBG Base Excess 4.5 mmol/L Sodium 138 (135-145) mmol/L Potassium 4.0 (3.3-5.1) mmol/L Chloride 107 (96-108) mmol/L Carbon Dioxide 22 (22-29) mmol/L Anion Gap 13 (12-20) BUN 13 (9-16) mg/dL Creatinine 0.85 (0.5-1.4) mg/dL Estim Creat Clear Calc 83.3 Estimated GFR > 60 Random Glucose 92 (60-115) mg/dL Lactic Acid 5.9 H* (0.5-2.0) mmol/L Lactic Acid F/U @ 2Hr (0.5-2.0) mmol/L Calcium 9.6 (8.4-10.2) mg/dL Total Bilirubin 0.3 (0.0-1.0) mg/dL AST 27 (5-37) U/L ALT 67 H (0-40) U/L Alkaline Phosphatase 82 (39-117) U/L Troponin I High Sens 2.8 (<3.5-35.0) ng/L NT-Pro-B Natriuret Pep 91.1 (<300) pg/mL Total Protein 7.4 (6.5-8.0) g/dL Albumin 4.4 (3.5-5.0) g/dL Lipase 17 (8-78) U/L Influenza Type A (PCR) NEGATIVE (Negative) Influenza Type B (PCR) NEGATIVE (Negative) RSV RNA Qual (PCR) NEGATIVE (Negative) SARS-CoV-2 RNA (RT-PCR) NEGATIVE (Negative) 06/29/25 Range/Units 15:13 WBC (4.8-10.8) X10*3/uL RBC (4.60-5.80) X10*6/uL Hgb (14.0-18.0) g/dl Hct (42.0-52.0) % MCV (80.0-98.0) fL MCH (27.0-33.0) pg MCHC (31.0-36.0) g/dl RDW (11.0-16.0) % Plt Count (160-400) X10*3/uL MPV (9.4-12.4) fL Immature Gran % (Auto) (0.0-0.4) % Neut % (Auto) (45-73) % Lymph % (Auto) (20-40) % [place] % (Auto) (2-11) % Eos % (Auto) (0-4) % Baso % (Auto) (0-2) % Lymph # (Auto) (1.2-4.9) X10*3/uL [place] # (Auto) (0.1-1.2) X10*3/uL Eos # (Auto) (0.0-0.4) X10*3/uL Baso # (Auto) (0.0-0.2) X10*3/uL Abs Immat Gran (auto) (0.00-0.03) X10*3/uL Absolute Neuts (auto) (2.0-8.3) x10*3/uL Absolute Nucleated RBC (0.0-0.012) X10*3/uL Nucleated RBC % (auto) (0.0-0.2) /100WBC VBG pH (7.32-7.43) VBG pCO2 mmHg VBG pO2 mmHg VBG HCO3 (22-26) mmol/L VBG O2 Saturation % VBG Base Excess mmol/L Sodium (135-145) mmol/L Potassium (3.3-5.1) mmol/L Chloride (96-108) mmol/L Carbon Dioxide (22-29) mmol/L Anion Gap (12-20) BUN (9-16) mg/dL Creatinine (0.5-1.4) mg/dL Estim Creat Clear Calc Estimated GFR Random Glucose (60-115) mg/dL Lactic Acid (0.5-2.0) mmol/L Lactic Acid F/U @ 2Hr 4.4 H* (0.5-2.0) mmol/L Calcium (8.4-10.2) mg/dL Total Bilirubin (0.0-1.0) mg/dL AST (5-37) U/L ALT (0-40) U/L Alkaline Phosphatase (39-117) U/L Troponin I High Sens (<3.5-35.0) ng/L NT-Pro-B Natriuret Pep (<300) pg/mL Total Protein (6.5-8.0) g/dL Albumin (3.5-5.0) g/dL Lipase (8-78) U/L Influenza Type A (PCR) (Negative) Influenza Type B (PCR) (Negative) RSV RNA Qual (PCR) (Negative) SARS-CoV-2 RNA (RT-PCR) (Negative) Independent Interpretation I performed an independent interpretation of an: EKG, Plain X-Ray and CT Scan Radiology Impression Discussion of test interpretation with radiology: I have reviewed the radiologist's reading. Radiologist Impression: Procedure(s): CT abdomen pelvis w IV con Accession Number(s): [id number] cc: [facility]; Gwen Burns~ Report Number: [id number]: Total DLP = 489.00 mGy-cm Reason for Exam: abd distension pin EXAMINATION: CT ABDOMEN AND PELVIS WITH CONTRAST CLINICAL INFORMATION: Abdominal distention, pain COMPARISON: None available. TECHNIQUE: Multidetector volumetric images were obtained from the superior aspect of the liver through the pubic symphysis following administration 85 mL of Omnipaque 350 intravenous contrast. Sagittal and coronal reformatted images were obtained on the technologist's workstation. Oral contrast: No This CT examination was performed using dose optimization techniques as appropriate, variously including the following: *Automated exposure control *Adjustment of mA and/or kV according to patient size (this includes techniques or standardized protocols for targeted exams where dose is matched to indication/reason for exam; i.e. extremities or head) *Use of iterative reconstruction technique FINDINGS: LUNG BASES: See chest CT report LIVER, GALLBLADDER, AND BILIARY TREE: Hepatomegaly. Right lobe measures 19.7 cm craniocaudal.. No focal hepatic lesion or biliary ductal dilatation is present. The gallbladder is unremarkable with no evidence of radiopaque gallstones, gallbladder wall thickening, or obvious pericholecystic inflammatory changes. Normal caliber CBD PANCREAS: Unremarkable. SPLEEN: Unremarkable. ADRENAL GLANDS: Unremarkable. KIDNEYS AND URETERS: Symmetric enhancement. No suspicious lesions. No hydronephrosis, hydroureter, or calculi seen. No perinephric stranding. BLADDER: Unremarkable. GASTROINTESTINAL TRACT: Suboptimal distention limits evaluation of the stomach. No dilated small bowel loops. Large colon is nondistended. Scattered colonic diverticuli. No findings to diverticulitis. Small-moderate volume stool in the large colon. Appendix appears unremarkable. Mesentery: No pneumoperitoneum. No ascites. No mesenteric mesenteric edema. No fluid collections. ABDOMINAL WALL: No significant hernia is appreciated. No subcutaneous fluid collections. LYMPH NODES: No pathologically enlarged lymph nodes. VASCULAR: Normal caliber aorta. The celiac, SMA, WILFREDO are enhancing. Normal enhancement of the portal vein. PELVIC VISCERA: Enlarged prostate measuring 4.9 cm. OSSEOUS STRUCTURES: Posterior fusion hardware at L3-4. Intact hardware. Intervertebral disc spacer at L4-5. No destructive osseous process is seen. Spinal stimulator device in the left gluteal region, with leads extending to the spine. CT/CT abdomen pelvis w IV con IMPRESSION: * No acute intra-abdominal findings are identified. Cause of the patient's symptoms has not been determined. * Scattered colonic diverticuli without evidence of diverticulitis. * Hepatomegaly * Additional findings and details as above. Fleischner guidelines were followed. Electronically signed by: Levi Funk MD 06/29/2025 02:13 PM [facility] Procedure(s): CT angio chest PE protocol Accession Number(s): [id number] cc: [facility]; Gwen Burns [facility] Report Number: [id number]: Total DLP = 236.00 mGy-cm Reason for Exam: dyspnea EXAMINATION: CT ANGIOGRAM CHEST CLINICAL INFORMATION: Dyspnea COMPARISON: None available. TECHNIQUE: Multiple axial images were obtained through the chest after the administration of 85 mL of Omnipaque 350 intravenous contrast. Extensive vascular post-processing including two-dimensional and three-dimensional reformatted images were created and reviewed on an independent workstation. This CT examination was performed using dose optimization techniques as appropriate, variously including the following: *Automated exposure control *Adjustment of mA and/or kV according to patient size (this includes techniques or standardized protocols for targeted exams where dose is matched to indication/reason for exam; i.e. extremities or head) *Use of iterative reconstruction technique FINDINGS: Vascular: There is good opacification of thoracic aorta and its branches without any aneurysmal filling defect or dissection. The pulmonary artery is well-opacified without intraluminal filling defect or narrowing. Heart size is normal. No pericardial effusion seen. Nonvascular: Both lungs well-expanded and clear acute pneumonic process. Mild dependent atelectatic changes are seen in both lung bases. A 5 mm calcified nodule is seen in right upper lobe axial image 32/23. There is no pulmonary nodule, mass or consolidation. There is no pleural effusion or thickening. The axillae and the chest wall is unremarkable. Visualized liver and spleen is unremarkable. No gross bony abnormality seen. No aggressive lytic or sclerotic process seen. There is a posterior epidural spinal electrodes in lower dorsal spine. CT/CT angio chest PE protocol IMPRESSION: No evidence of PE. No evidence of aortic aneurysm or dissection. Minimal bibasilar dependent atelectasis Fleischner guidelines were followed. Electronically signed by: Miguel Morales MD 06/29/2025 01:59 PM [facility] Independent Historian Clinical information obtained from an independent historian. History obtained from or confirmed by: Spouse External Record Review External record reviewed: Inpatient record Prescription Management I considered prescription management with: Pain Medication and Antibiotic Chronic Conditions Patient?s care impacted by: Other (asthma) Social Determinants Patient?s care significantly limited by Social Determinants of Health including: Other Social Determinant of Health Critical Care Time Critical Care Time Critical Care Time: Yes Total Critical Care Time: 45 Attestation: Critical care time in the amount of 45 minutes has been provided to the patient in terms of direct patient care, frequent reevaluation, review and interpretation of medical data and results, and management of potentially life- threatening conditions. This is all outside of any medical procedures. Discharge Plan Discharge Clinical Impression: Asthma exacerbation Patient Disposition: Home, Self-Care Instructions: Asthma (ED) Additional Instructions: Please follow-up with your primary care physician tomorrow. If you have any worsening or new symptoms, please return to the emergency room or call 911 Prescriptions: New prednisone 10 mg tablet 10 mg PO DIRECTED Qty: 30 0RF Rx Instructions: see taper instructions; 40 mg Daily x3 days, 30 mg daily x3 days, 20 mg daily x3 days, 10 mg daily x3 days codeine-guaifenesin 7.5-225 mg/5 mL liquid 7.5 ml PO Q4-6H PRN (Reason: cough) Qty: 473 0RF Rx Instructions: Keep his medication away from children and Pets No Action oxycodone 5 mg tablet 5 mg PO BID PRN (Reason: pain) Qty: 10 0RF oxycodone 5 mg tablet 5 mg PO Q6H PRN (Reason: pain) Qty: 12 0RF Rx Instructions: Partial Fill upon patient request. ibuprofen 600 mg tablet 600 mg PO TID PRN (Reason: pain) Qty: 30 0RF (DME) walker Misc See Rx Instructions .Route Qty: 1 0RF Rx Instructions: As directed Interventions: ED Discharge Assessment Last Done: 06/29/25 17:01 Discharge Date/Time: 06/29/25 17:03 Print Language: Croatian
[2025-06-29] MEDS: Albuterol Sulfate 5 MG, Albuterol/Iprat 2.5/0.5MG 3 ML 3 ML INHALE (12:09)
[2025-06-29 12:19] LABS: MANUAL DIFF FLAG NO
[2025-06-29 12:20] LABS: Hematocrit 42.6 % (42.0-52.0); Hemoglobin 14.2 g/dl (14.0-18.0); Imm Gran Abs Auto 0.26 X10*3/uL (0.00-0.03); Imm Gran Pct Auto 2.6 % (0.0-0.4); Lymphocytes Absolute Auto 2.2 X10*3/uL (1.2-4.9); Mean Corpuscular HGB Conc 33.3 g/dl (31.0-36.0); Mean Corpuscular Hemoglobin 29.6 pg (27.0-33.0); Mean Corpuscular Volume 88.9 fL (80.0-98.0); NRBC Abs Auto 0.000 X10*3/uL (0.0-0.012); NRBC Pct Auto 0.0 /100WBC (0.0-0.2); Platelet Count 325 X10*3/uL (160-400); Red Blood Count 4.79 X10*6/uL (4.60-5.80); White Blood Count 10.1 X10*3/uL (4.8-10.8)
[2025-06-29 12:27] LABS: Venous Blood Gas Refer to POC result
[2025-06-29 12:28] LABS: VBG HCO3 23 mmol/L (22-26); VBG O2 % Saturation 100.0 %
[2025-06-29 12:34] LABS: Alanine Aminotransferase 67 U/L (0-40); Albumin Level 4.4 g/dL (3.5-5.0); Alkaline Phosphatase 82 U/L (39-117); Anion Gap 13 (12-20); Aspartate Amino Transferase 27 U/L (5-37); Blood Urea Nitrogen 13 mg/dL (9-16); Calcium 9.6 mg/dL (8.4-10.2); Carbon Dioxide 22 mmol/L (22-29); Chloride 107 mmol/L (96-108); Creatinine Clr Calc Pharmacy 83.3; Estimated Glomerular Filt Rate > 60; Potassium 4.0 mmol/L (3.3-5.1); Sodium 138 mmol/L (135-145); Total Protein 7.4 g/dL (6.5-8.0)
--- OUTSIDE RECORDS SUMMARY | 2025-06-29 12:37 | XMS_ITS | Clinical Summary ---
Author Organization [employer] Address [address] [place] [address] Care Team Providers Care Instructor Extension Work Name Role Phone Unavailable Primary Care Provider Unavailabl e Immunizations Immunization Administration Dates Next Due Pfizer Covid-19 Vaccine 12+ Bivalent 07/04/2022 Social History Tobacco Use Types Packs/Day Years Used Date Smoking Tobacco: Never Assessed Sex and Gender Information Value Date Recorded Sex Assigned at Male 05/06/2022 10:39 AM EDT Legal Sex Male 10:39 AM EDT Gender Identity Male 05/06/2022 10:39 AM EDT Sexual Orientation Straight 05/06/2022 10 :39 AM EDT Plan of Treatment Health Maintenance Due Date Last Done Comments CT Colonography 1958 Colonoscopy 1958 Colorectal Cancer Screening 1958 Depression Screening 1958 FIT DNA/Cologuard 1958 FIT 1958 FOBT 1958 Lipid Panel 1958 SDOH Screening 1958 Sigmoidoscopy 1958 Alcohol/Substance Use Screening 1970 Tobacco Screening 1970 Hepatitis C Screening 1976 RSV Patients and Patients Aged 60 years or older (1 - Risk 50-74 years 1-dose series) 2008 COVID-19 Vaccine ( season) 2025 04/28/2024, 04/18/2023, 07/04/2022, Additional history exists Influenza Vaccine (#1) 2025 , 04/18/2023, 05/21/2021, Additional history exists DTaP/Tdap/Td Vaccines (2 - Td or Tdap) 04/15/2029 04/15/2019 Zoster Vaccines Completed 04/18/2023, 01/18/2021 Pneumococcal Vaccine: 50+ Years Completed 07/24/2023, 08/31/2013, 03/27/2010 HIB Vaccines Aged Out No longer eligi ble based on patient's age to complete this topic HPV Vaccines Aged Out No longer eligi ble based on patient's age to complete this topic Hepatitis A Vaccines Aged Out No long er eligible based on patient's age to complete this topic Hepatitis B Vaccines Aged Out No long er eligible based on patient's age to complete this topic IPV Vaccines Aged Out No longer eligi ble based on patient's age to complete this topic Meningococcal B Vaccine Aged Out No l onger eligible based on patient's age to complete this topic Meningococcal Vaccine Aged Out No leroy catrachita eligible based on patient's age to complete this topic RSV under 20 months Aged Out No longe r eligible based on patient's age to complete this topic Rotavirus Vaccines Aged Out No longer eligible based on patient's age to complete this topic Insurance [facility]
--- OUTSIDE RECORDS SUMMARY | 2025-06-29 12:37 | XMS_ITS | Clinical Summary ---
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 Name Role Phone Govind Cantu MD Primary Care Provider [phone] Immunizations Immunization Administration Dates Next Due Pfizer SARS-CoV-2 COVID-19, mRNA, LNP-S, preservative free 09/05/2020,08/15/2020 Surgical History Surgery Date Site/Laterality Comments BACK SURGERY 11/03/2009 PROCEDURE: HISTORICAL BACK SURGERY; COMMENT: Lumbar fusion, Dr Tuttle BACK SURGERY 2002 PROCEDURE: HISTORICAL BACK SURGERY APPENDECTOMY 1977 PROCEDURE: HISTORICAL APPENDECTOMY COLONOSCOPY 09/04/2010 PROCEDURE: HISTORICAL COLONOSCOPY; COMMENT: Hyperplastic polyp, External hemorrhoids UPPER GASTROINTESTINAL ENDOSCOPY 09/04/2010 PROCEDURE: DC UPPER GI ENDOSCOPY PERFORMED; COMMENT: Gastritis, No H. pylori Medical History Medical History Date Comments ALEX on CPAP 06/18/2019 DX:ALEX on CPAP; COMMENT: Sleep study 07/11/10 [facility] = ALEX mild, repeat sleep study 06/15/15 revealed periodic limb movements, not sufficient to support sleep apnea. Had home sleep study = ALEX & using CPAP. 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 06/18/2019 DX:Stenosis of lateral reces s of lumbar spine Hyperlipidemia 06/18/2019 DX:Hyperlipidemi a BPH (benign prostatic hyperplasia) 06/18/2019 DX:BPH (benign prostatic hyperplasia) COPD with asthma (CMS/HCC V2 4, CMS/HCC V28) 06/18/2019 DX:COPD with asthma (HCC) Restless leg syndrome 06/18/2019 DX:Restles s leg syndrome Osteoarthritis 06/18/2019 DX:Osteoarthriti s; COMMENT: Lumbar Spine, R Knee Vitamin D deficiency 06/18/2019 DX:Vitamin D deficiency Vitamin B 12 deficiency 06/18/2019 DX:Vitam in B 12 deficiency Insomnia 06/18/2019 DX:Insomnia Bilateral headaches 06/18/2019 DX:Bilateral headaches Oral herpes simplex infection 06/18/2019 DX :Oral herpes simplex infection Prediabetes 06/18/2019 DX:Prediabetes Chronic low back pain 06/18/2019 DX:Chronic low back pain Social History Tobacco Use Types Packs/Day Years Used Date Smoking Tobacco: Former Cigarettes Sex and Gender Information Value Date Recorded Sex Assigned at Not on file Legal Sex Male 6:18 PM EST Gender Identity Not on file Sexual Orientation Not on file Plan of Treatment Health Maintenance Due Date Last Done Comments RSV Immunization Adult Patients (1 - Risk 50-74 years 1-dose series) 2008 Zoster Vaccines (1 of 2) 2008 Pneumococcal Vaccine: 50+ Years (2 of 2 - PCV) 08/31/2014 08/31/2013 Abdominal Aortic Aneurysm (AAA) Screen 06/08/2022 Cholesterol Screening (Lipid Panel) 06/08/2022 Hepatitis C Screening 06/08/2022 Medicare Annual Wellness Visit 06/08/2022 Social Influencers of Health Screening 06/08/2022 Falls Risk Assessment 2023 Depression Screening 07/07/2024 COVID-19 Vaccine ( - season) 2025 09/05/2020, 08/15/2020 Influenza Vaccine (#1) 2025 9, 03/30/2015, 05/27/2014, Additional history exists Colorectal Cancer Screening: Colonoscopy 08/12/2026 DTaP,Tdap,and Td Vaccines (2 - Td or Tdap) 04/15/2029 04/15/2019 HIB Vaccines Aged Out No longer eligi [...] on patient's age to complete this topic MMR Vaccines Aged Out No longer eligi ble based on patient's age to complete this topic Meningococcal ACWY Vaccine Aged Out N o longer eligible based on patient's age to complete this topic Meningococcal B Vaccine Aged Out No l onger eligible based on patient's age to complete this topic RSV Immunization Patients Under 20 months Aged Out No longer eligible based on patient's age to complete this topic Varicella Vaccines Aged Out No longer eligible based on patient's age to complete this topic Insurance MEDICARE [employer] MEDICARE Care Teams Monument Setter Helper Relationship Specialty Start Date End Date Govind Cantu MD [address] [place] [address] PCP - General 01/27/24
--- OUTSIDE RECORDS SUMMARY | 2025-06-29 12:37 | XMS_ITS | Data Portability ---
Author Organization [facility] [place] [facility] Address [address] [place] [address] Care Team Providers Care Enterostomal Nurse Name Role Phone [facility] Primary Care Provider [phone] Assessment No assessment recorded. Plan of Treatment Reminders Order Date Submit Date Provider Name Organization Details Last Modified By Last Modified Time Details Appointments None recorde d. Lab None recorde d. Referral None recorde d. Procedures None recorde d. Surgeries None recorde d. Imaging XR, cervica l spine, 2 or 3 view 2024 08:30: 58 025 KRISTINA REEDER [facility]C [facility] [address],[facility] [address], [place], [address], Skylar Daugherty 5 09:47:56 MRI, shoulde r, w/o contras t 2023 10:06: 59 024 Julia Arreola i, PA-C [facility] ([facility]) [address] [facility] [place], [address], [employer] [facility] 4 13:34:50 MRI, shoulde r, w/o contras t 2023 10:06: 59 024 Julia Arreoal i, PA-C [facility] ([facility]) [address] [place], [address], [employer] [facility] 4 13:34:50 MedicationOrders None recorde d. VaccineOrders None recorde d. Patient TargetsNo targets recorded. Patient InstructionsNo instructions recorded. Reason for Referral None Reported. Results Created Date Observation Date Name Description Value Unit Range Abnormal Flag Specimen Type Note LastModifiedBy Organization Detail LastModifiedTime 06/08/2024 06/08/2024 MR, shoulder (C-) right CPT 11629 [facility] Accession Number: [id number] Patient Name: Rico Baker Date of : 1960 Date of Exam: 06-08-2024 Referring Physician: Julia Flores [address] [facility] [address] [place], [place] [address] Exam: MR Shoulder (C-) CPT 05129 - Right Room Description: [place] [facility] Espr 1.5 Shoulder MRI right Clinical History: Pain Findings: Moderate acromioclavicular osteoarthritis. The supraspinatus tendon is intact . The infraspinatus tendon is intact . The teres minor tendon is intact . The subscapularis tendon is intact . The long head of the biceps tendon is intact . The glenoid labrum is not well evaluated on this non-arthrogram MR, but appears grossly intact . Impression: No evidence of rotator cuff tear. Mild acromioclavicular osteoarthritis Electronically Signed By: Santana Flores PA-C [facility] ([facility]) , [address] [place] [address] , [address], [place] , 06/08/2024 16:17:47 06/10/2024 06/10/2024 MR, shoulder (C-) left CPT 20372 [facility] Accession Number: [id number] Patient Name: Rico Baker Date of : 1960 Date of Exam: 06-10-2024 Referring Physician: Julia Flores [address] [facility] [address] [place], [place] [address] Exam: MR Shoulder (C-) CPT 30385 - Left Room Description: [place] Siem Espr 1.5 MR Shoulder (C-) CPT 10776 CLINICAL INDICATION: Chronic left shoulder pain. Worse at night. TECHNIQUE: MRI of the left shoulder was performed without intravenous contrast. COMPARISON: None. FINDINGS: Rotator cuff: Moderate grade intrasubstance tear of the footprint fibers of the supraspinatus. The tear measures approximately 7 mm transverse dimension by 4 mm AP dimension. The subscapularis, infraspinatus, and teres minor are unremarkable. Glenoid labrum and biceps tendon: There is no displaced labral tear. Incidental finding of a sublabral foramen. The biceps tendon remains within the bicipital groove. AC joint: Moderate degenerative changes to the acromioclavicular joint with subchondral edema on etiher side of the acromioclavicular joint. Articular cartilage: The articular cartilage is of normal thickness. No focal defects are seen. Bone: The bone and bone marrow are normal. IMPRESSION: 1. Small moderate grade intrasubstance tear of the footprint fibers of the supraspinatus. 2. Moderate degenerative changes to the acromioclavicular joint with subchondral edema on either side of the joint. I, Lydnon Choudhury, have reviewed the images and report and concur with the resident, Urszula Duggan's, findings. Electronically Signed By: Lyndon Flores PA-C [facility] ([facility]) , [address] , [place] , [address], [place] , 06/11/2024 15:27:52 07/19/2024 07/19/2024 lumbar spine 2 view [email or web address]=s aSoDvlAC0oRtjTTm0j %5QFVrsOzbma3elpn% 2Gj1DKx2cmKxaU2gZt XYjrrPn1TcECKbJxrL LC8hMrSApst57k5626 VE5Tfh15ZLpuuArFwp MwF Not Available [facility] , [address] , [place] , [address], [place] , 07/19/2024 08:32:38 07/19/2024 07/19/2024 lumbar spine 2 view [email or web address]=s qRdApoAV5oJmuMFr0i %7SFIudBisoq2xcqp% 0Yu6SZo6axKeuL6bLw YZmclQc6VwELZpRsqE CU3zVsZEdcn38v0104 EG8Pif74CLwpjWrDbj MwF Not Available [facility] , [address] [facility],[address] , [place] , [address], [place] , 07/19/2024 08:32:40 Result Notes Documentation Provider Name and Address Organization Details Recorded Time Mri, Shoulder, W/o Contrast : [facility] Accession Number: [id number] Patient Name: Rico Baker Date of : 1960 Date of Exam: 06-08-2024 Referring Physician: Julia Flores [address] [facility] [address] [place], [place] [address] Exam: MR Shoulder (C-) CPT 67795 - Right Room Description: [facility] Espr 1.5 Shoulder MRI right Clinical History: Pain Findings: Moderate acromioclavicular osteoarthritis. The supraspinatus tendon is intact . The infraspinatus tendon is intact . The teres minor tendon is intact . The subscapularis tendon is intact . The long head of the biceps tendon is intact . The glenoid labrum is not well evaluated on this non-arthrogram MR, but appears grossly intact . Impression: No evidence of rotator cuff tear. Mild acromioclavicular osteoarthritis Electronically Signed By: Santana Flores PA-C [address] [facility] [address], [place], [address], [place] - [facility] 06/08/2024 16:17:47 Mri, Shoulder, W/o Contrast : [facility] Accession Number: [id number] Patient Name: Rico Baker Date of : 1960 Date of Exam: 06-10-2024 Referring Physician: Julia Flores [address] [facility] [address] [place], [place] [address] Exam: MR Shoulder (C-) CPT 16615 - Left Room Description: [place] Siem Espr 1.5 MR Shoulder (C-) CPT 73160 CLINICAL INDICATION: Chronic left shoulder pain. Worse at night. TECHNIQUE: MRI of the left shoulder was performed without intravenous contrast. COMPARISON: None. FINDINGS: Rotator cuff: Moderate grade intrasubstance tear of the footprint fibers of the supraspinatus. The tear measures approximately 7 mm transverse dimension by 4 mm AP dimension. The subscapularis, infraspinatus, and teres minor are unremarkable. Glenoid labrum and biceps tendon: There is no displaced labral tear. Incidental finding of a sublabral foramen. The biceps tendon remains within the bicipital groove. AC joint: Moderate degenerative changes to the acromioclavicular joint with subchondral edema on etiher side of the acromioclavicular joint. Articular cartilage: The articular cartilage is of normal thickness. No focal defects are seen. Bone: The bone and bone marrow are normal. IMPRESSION: 1. Small moderate grade intrasubstance tear of the footprint fibers of the supraspinatus. 2. Moderate degenerative changes to the acromioclavicular joint with subchondral edema on either side of the joint. I, Lyndon Choudhury, have reviewed the images and report and concur with the resident, Urszula Duggan's, findings. Electronically Signed By: Lyndon Flores PA-C [address] [place] [address], [address], [facility] - [facility] 06/11/2024 15:27:52 Xr, Lumbar Spine, 2 View : [email or web address] crypted=aeRzUeiJR8qGbqLEm3d %0HSQdnJgify0ozyi%2Ql8BFu7h jHecJ7wBrOMigjPc3JvSDPhSnlX UP4jRwZBqzh82y4419RL8Nos04H VqaiKiQtrMwF Not Available [facility] 07/19/2024 08:32:38 Xr, Lumbar Spine, 2 View : [email or web address] crypted=myRnAbkCB8lXzbAUx0i %8MZQthZdjbn9lkeo%8Sg9ZTs4z dLrjZ8qRaZNqtkOs9EjMRKkTawT TV8fUjTLzoq80n1766AY1Rka01W VqaiKiQtrMwF Not Available [facility] 07/19/2024 08:32:40 Problems Name Problem SNOMED Code Status Onset Date Resolution Date Notes Provider Name and Address Organization Details Recorded Time No complaints 262750733 Active Status : 'I'; Not Available [facility] 4 09:10:27 Closed bimalleola r fracture of left ankle 6282224270022 9103 Active 2023 Ozzie Medellin MD [address], [place], [address] , [facility] 4 10:31:19 Bilateral shoulder joint pain 5260498268718 9104 Active 2023 Julia Flores PA-C [address], [place], [address] , [facility] 4 08:06:41 Neck pain 30012803 Active 2023 Julia Flores PA-C [address], [place], [address] , [facility] 4 11:40:47 Nontraumat ic partial rupture of left rotator cuff 3981508013681 103 Active 2024 Julia Hernandez PA-C [address], [place], [address] , [facility] 5 17:04:50 Problem Notes None recorded. Procedures Surgical History Date Name Laterality Status Provider Name and Address Organization Details Recorded Time 5 Sports Shoulder completed Thai Dimas PA-C [address], [place], [address], [facility] 03/04/2025 15:16:19 5 Sports Shoulder completed Julia Hernandez PA-C [address], [place], [address], [place] [facility] 09/23/2024 08:28:28 4 Sports Shoulder completed Julia Flores PA-C [address], [place], [address], [facility] 06/24/2024 08:59:18 4 Sports Shoulder Bilateral completed Julia Flores PA-C [address], [place], [address], [facility] 02/25/2024 09:52:54 Imaging Results Imaging Date Name Status LastModifiedBy Organization Detail LastModifiedTime 06/08/2024 MR, shoulder (C-) right CPT 85337 completed Julia Flores PA-C [facility] ([facility]) , [address] , [place] , [address], [place] , 06/08/2024 16:17:47 06/10/2024 MR, shoulder (C-) left CPT 69052 completed Julia Flores PA-C [facility] ([facility]) , [address] , [place] , [address], [place] , 06/11/2024 15:27:52 07/19/2024 lumbar spine 2 view completed Not Available [facility] , [address] , [place] , [address], [place] , 07/19/2024 08:32:38 07/19/2024 lumbar spine 2 view completed Not Available [facility] , [address] , [place] , [address], [place] , 07/19/2024 08:32:40 Procedure Notes None recorded. Medical Equipment None Reported. Allergies No known drug allergies Medications Name Authored On Sig Start Date Stop Date Status Note Indication Fill Status Repeat Number Dispense Quantity LastModified by Organization Details LastModified Time aceta minop hen 500 mg table t 4 10:35:41 TAKE 1 TABL ET BY VON Adamson EVER Y 6 HOUR S NEED ED FOR PAIN active Not Available Not availab le 0 Not Available Not Available [facility] 10/07/2023 10:35:41 amoxi cilli n 500 mg capsu le 4 10:35:41 active Not Available Not availab le 0 Not Available Not Available [facility] 10/07/2023 10:35:41 baclo fen 20 mg table t 4 10:35:41 TAKE 1 TABL ET BY MOUT H TWIC E KARISHMA Y NEED ED FOR MUSC LE SPAS MS active Not Available Not availab le 0 Not Available Not Available [facility] 10/07/2023 10:35:41 ibupr ofen 800 mg table t 4 10:35:41 active Not Available Not availab le 0 Not Available Not Available [facility] 10/07/2023 10:35:41 One Daily Multi vitam in table t 4 10:35:41 TAKE 1 TABL ET BY MOCHANDNI H EVER Y DAY active Not Available Not availab le 0 Not Available Not Available [facility] 10/07/2023 10:35:41 ibupr ofen 600 mg table t 4 10:35:41 TAKE 1 TABL ET BY MOUT H 3 TIME S KARISHMA Y NEED ED FOR PAIN . 10/29 aborted Not Available Not availab le 0 Not Available Emelyn Hernandez [facility] 10/30/2023 10:11:55 oxyco done 5 mg table t 4 10:35:41 TAKE 1 TABL ET BY MOCHANDNI H EVER Y 4 TO 6 HOUR S NEED ED. DO NOT FAYE HERNÁNDEZ THIS MEDI SOREN ON 10/29 aborted Not Available Not availab le 0 Not Available Emelyn Hernandez [facility] 10/30/2023 10:12:05 oxyco done HCl-o xycod one-A SA 4 19:03:42 1 ever y 4 - 6 hour s as need edDO NOT FAYE HERNÁNDEZ THIS MEDI SOREN ON 10/29 aborted Statu s: 'Curr ent'; Not Available Not availab le 0 Not Available Emelyn Hernandez [facility] 10/30/2023 10:12:13 trama dol 50 mg table t 4 10:35:41 TAKE 1 TABL ET BY VON Adamson EVER Y 6 HOUR S NEED ED FOR PAIN 10/29 aborted Not Available Not availab le 0 Not Available Emelyn Hernandez [facility] 10/30/2023 10:12:20 methy lpred nisol one 4 mg table ts in a dose pack 4 10:35:41 TAKE 6 TABL ETS ON DAY 1 DIRE CTED ON PACK AGE AND DECR EASE BY 1 TAB EACH DAY FOR A TOTA L OF 6 DAYS 10/29 aborted Not Available Not availab le 0 Not Available Emelyn Hernandez [facility] 10/30/2023 10:12:30 gabap entin 800 mg table t 4 21:58:04 TAKE 1 TABL ET BY VON Adamson THRE E TIME S KARISHMA Y NEED ED (for nerv e pain ) active Not Available Not availab le 0 Not Available Not Available [facility] 02/24/2024 21:58:04 diclo fenac sodiu m 75 mg table t,del ayed relea se 4 22:07:11 TAKE 1 TABL ET BY VON Adamson TWIC E KARISHMA Y active Not Available Not availab le 0 Not Available Not Available [facility] 05/26/2024 22:07:11 Remigio william HFA 90 mcg/a ctuat ion aeros ol inhal er 4 22:07:11 INHA LE 2 PUFF S BY VON Adamson EVER Y 4 HOUR S NEED ED SHOR TNES S OF NAEEM TH OR FOR WHEE ZING active Not Available Not availab le 0 Not Available Not Available [facility] 05/26/2024 22:07:11 ezeti mibe 10 mg table t 4 20:54:53 active Not Available Not availab le 0 Not Available Not Available [facility] 06/23/2024 20:54:53 Godfrey za Press air 400 mcg/a ctuat ion breat h activ ated 4 20:54:53 active Not Available Not availab le 0 Not Available Not Available [facility] 06/23/2024 20:54:53 albut tejas sulfa te 2.5 mg/3 mL (0.08 3 %) solut ion for nebul izati on 5 08:02:41 INHA LE 1 AMPU LE USIN G A NEBU LIZE R EVER Y 6 HOUR S NEED ED FOR WHEE ZING active Not Available Not availab le 0 Not Available Not Available jesu - External Data Service - prod 12/21/2024 08:02:41 aspir in 81 mg table t,del ayed relea se 5 08:02:41 TAKE 1 TABL ET BY MOUT H ONCE KARISHMA Y active Not Available Not availab le 0 Not Available Not Available jes[facility] - External Data Service - prod 12/21/2024 08:02:41 atorv astat in 80 mg table t 5 08:02:42 TAKE 1 TABL ET BY MOUT H EVER Y NIGH T AT BEDT DANYEL active Not Available Not availab le 0 Not Available Not Available jes[facility] - External Data Service - prod 12/21/2024 08:02:42 Breo Ellip ta 200 mcg-2 5 mcg/d ose powde r for inhal ation 5 08:02:42 INHA LE 1 PUFF BY MOUT H EVER Y DAY AT THE SAME TIME RINS E MOUT H AFTE R USIN G active Not Available Not availab le 0 Not Available Not Available jesu - External Data Service - prod 12/21/2024 08:02:42 cyclo benza slime 5 mg table t 5 08:02:42 TAKE 1 TABL ET BY MOUT H AT BEDT DANYEL FOR FOUR TEEN DAYS active Not Available Not availab le 0 Not Available Not Available jes[facility] - External Data Service - prod 12/21/2024 08:02:42 omepr azole 20 mg capsu le,de layed relea se 5 08:02:42 TAKE 1 CAPS ULE BY MOUT H EVER Y MORN ING BEFO RE NAEEM KFAS T DO NOT NAEEM K, WOODY H, DISS OLVE OR CHEW active Not Available Not availab le 0 Not Available Not Available jes[facility] - External Data Service - prod 12/21/2024 08:02:42 Vitals Date Recorded Body height Provider Name an d Address Organization Details Last Updated DateTime 09/23/2024 167.64 cm CA HERNANDEZ [facility] 09/23/2024 08:38:40 Date Recorded Body height Body mass index (BMI) Body weight Provider Name and Address Organization Details Last Updated DateTime 03/04/2025 167.64 cm 29.9 kg/m2 86723.59 g Fide Jorgensen [facility] 03/04/2025 15:04:23 Date Recorded Body height Body mass index (BMI) Body weight Provider Name and Address Organization Details Last Updated DateTime 05/27/2024 167.64 cm 29.7 kg/m2 58132 g BRIDGETTE MARCEL [facility] 05/27/2024 09:50:39 Date Recorded Body height Body mass index (BMI) Body weight Provider Name and Address Organization Details Last Updated DateTime 06/24/2024 167.64 cm 29.7 kg/m2 63607 g FORTINO PULLIAMSHANTELLE [facility] 06/24/2024 08:25:28 Social History Question Answer Notes LastModified by Organizat ion Details LastModified Time Tobacco Smoking Status [facility] 02/25/2024 09:25:23 What Is Your Level Of Alcohol Consumption? None [facility] 02/25/2024 09:25:23 Which of your hands is dominant? Right LOLI LAWLER [facility] 02/25/2024 09:25:02 When did you quit smoking? 16+ years since last cigarette LOLI SEGALVERNON [facility] 02/25/2024 09:25:23 Social History Observation Description Date Observed Sex Unknown 06/10/2025 Legal Sex Male Status Not (finding) 06/29/20 25 No social history survey screeners recorded No social history SDOH screeners recorded Functional Status Question Answer Note LastModified by Organizat ion Details LastModified Time Do you or have you ever used any other forms of tobacco or nicotine? No LOLI SEGALJANEEN [facility] 02/25/2024 09:25:23 What is your level of alcohol consumption? None LOLI SEGALJANEEN [facility] 02/25/2024 09:25:23 Do you use any illicit or recreational drugs? No LOLI LAWLER [facility] 02/25/2024 09:25:23 No Functional Screening assessment recorded No Functional SDOH screeners recorded Mental Status None recorded. No Mental Screening assessment recorded No Mental SDOH screeners recorded Family History Nothing Reported. Medical History Condition Response Allergies/Hayfever N Coronary Artery Disease N Breathing or lung disorders Y Anxiety/Depression N Emphysema N Nerve Disorders Y Thyroid Problems N COPD Y Pacemaker N Kidney/Bladder Problems N Anemia N Vascular Disease N Heart Attack (AR) N Gastrointestinal Disease N Cholesterol Y Diabetes N Autoimmune disease N Bleeding Disorder N Orthotics N Seizures/Epilepsy N Arthritis Y Blood Clot N AIDS/HIV N Congestive Heart Failure (CHF) N Acid Reflux (GERD) Y Cancer N Stroke N Asthma N Peripheral Vascular Disease N Sleep Apnea Y Hepatitis N Heart Disease N Rheumatoid Arthritis N Pulmonary Embolism N Arrhythmia N Headaches Y Fibromyalgia N Hypertension N Osteoporosis N Past Encounters Encounter ID Performer Location Encounter Start Date Encounter Closed Date Diagnosis/Indication Diagnosis SNOMED-CT Code Diagnosis ICD10 Code Diagnosis IMO Codes Diagnosis Note [id number] ZEN Temple [address] [place] [address] 10/07/2023 10:35:53 10/27/2023 09:10:26 Postoperative care 118760105 Z48.89 [id number] MD Cinthya Gallagher [address] [place] [address] 10/30/2023 09:13:03 11/21/2023 09:05:56 Pain of left ankle joint 2164149696 4282464 M25.572 Closed bim alleolar fracture of left ankle 1368804129 7770258 S82.842D [id number] ZEN Caban [address] [place] [address] 02/25/2024 09:00:29 03/12/2024 14:54:19 Bilateral shoulder joint pain 6176819995 0382766 M25.511 M25.215 [id number] Julia Flores PA-C [address] [place] [address] 05/27/2024 09:34:13 06/15/2024 13:34:49 Bilateral shoulder joint pain 7563678687 6003674 M25.511 M25.512 Neck pain 55595553 M54.2 [id number] Julia Flores PA-C [address] [address] [place] [address] 06/24/2024 08:17:12 07/19/2024 13:57:46 Bilateral shoulder joint pain 4640884398 8053577 M25.511 M25.512 Neck pain 12043728 M54.2 [id number] KRISTINA REEDER PA-C [facility] [address] [place] [address] 07/19/2024 08:18:17 07/30/2024 09:47:56 Neck pain 55271802 M54.2 [id number] Julia Hernandez PA-C [facility] [address] [place] [address] 09/23/2024 08:32:49 10/08/2024 10:11:54 Neck pain 17228786 M54.2 84350 Nontraumat ic partial rupture of left rotator cuff 8745383425 935198 M75.472 [id number] Thai Dimas PA-C [facility] [address] [place] [address] 03/04/2025 15:01:38 03/15/2025 09:51:29 Impingement syndrome of left shoulder region 8627059609 66393 M75.42 50913267 Nontraumat ic partial rupture of left rotator cuff 0862757943 878261 M75.112 [id number] Health Concerns Section Related Observation LastModified by Organization [facility] health LastModified Time None Recorded Concern Status LastModified by Organization Details LastModified Time None Recorded SDOH Concern Status LastModified by Organization Tom LastModified Time None Recorded Advance Directives Directive None Recorded Payers Insurance Date Sequence Insurance Name Policy Number Policy Eddy Covered Member ID Eddy Member ID Guarantor Name 03/04/2025 1 MEDICARE B-[place]: [facility] Referral[employer] Rico Olguin [id number] Colt Gogre Notes Date Note Type Note Provider Name and Address Organization Details Recorded Time 4 text/html I am seeing the patient today under the supervision of Dr. Jo who was available but did not see the patient. CLINICAL UPDATE:63-year-old nolou-[id number]-yzzkwxqf male patient presents today for bilateral shoulder recheck. Last bilateral shoulder cortisone injections 02/25/24 provided mild relief for about a month. He still reports pain worse at night and his shoulders. He does report neck pain, never attended physical therapy. HPI: Has been treated in 2023 for bilateral cervical radiculopathy C5-C6. Sent for PT and provided medrol dose pack.Bilateral shoulder pain that began worsening about a year ago. Localizes pain to the rotator cuff intervals, radiates down to his elbow at times. Pain is worse at night and any lifting of his arms. He has tried oral diclofenac with mild relief. He does have some neck pain, denies numbness/tingling down his upper extremities. Denies previous shoulder surgery. Past family, medical, social history and review of systems has been reviewed, updated and is located in the patient's chart.X-RAYS:Previous 4v x-rays of the Bilateral shoulders reviewed at [facility] today. Left shoulder demonstrates moderate AC joint degenerative changes, type II acromion, well-preserved glenohumeral joint space. Right shoulder demonstrates severe AC joint degenerative changes, type II acromion, well-preserved glenohumeral joint space.Previous c-spine x-ray from 2023 demonstrates moderate joint space narrowing C5-C7. IMPRESSION: Bilateral shoulders - rotator cuff tendinopathy, cervicalgia PLAN: Findings reviewed. Patient has tried Medrol Dosepak, cortisone injection of bilateral shoulders with mild relief for about a month, oral diclofenac. At this point, recommended MRI of bilateral shoulders. I have also made him a evaluation for his neck. He may continue to use his oral diclofenac, follow-up yearly with his PCP for labs. Discussed proper lifting mechanics, avoiding heavy lifting or repetitive movements. Follow-up for MRI review and ongoing treatment discussion. All of his concerns are addressed and he understands and agrees with the plan. Speech recognition application software developer software was used to create portions of this document. An attempt at proofreading has been made to minimize errors. Please call for corrections. Julia Flores PA-C [address], [place], [address], [facility] 05/27/2024 11:40:59 4 text/html I am seeing the patient today under the supervision of Dr. Zuniga who was available but did not see the patient. CLINICAL UPDATE:64-year-old yccna-uovh-nxvejoat male patient presents today for bilateral shoulder recheck and MRI review. Last bilateral shoulder cortisone injections 02/25/24 provided mild relief for about a month. Pain is localized to the left side of his neck and radiates down to his left elbow. Pain is worse at night. He does report neck pain, never attended physical therapy. HPI: Has been treated in 2023 for bilateral cervical radiculopathy C5-C6. Sent for PT and provided medrol dose pack.Bilateral shoulder pain that began worsening about a year ago. Localizes pain to the rotator cuff intervals, radiates down to his elbow at times. Pain is worse at night and any lifting of his arms. He has tried oral diclofenac with mild relief. He does have some neck pain, denies numbness/tingling down his upper extremities. Denies previous shoulder surgery. Past family, medical, social history and review of systems has been reviewed, updated and is located in the patient's chart.X-RAYS:Previous 4v x-rays of the Bilateral shoulders reviewed at [facility] today. Left shoulder demonstrates moderate AC joint degenerative changes, type II acromion, well-preserved glenohumeral joint space. Right shoulder demonstrates severe AC joint degenerative changes, type II acromion, well-preserved glenohumeral joint space.Previous c-spine x-ray from 2023 demonstrates moderate joint space narrowing C5-C7. MRI [place] 06-08-2024 of [facility] independently reviewed today demonstrates: Rotator cuff intact, no evidence of full-thickness tears. Biceps and labrum appear intact. Moderate AC joint osteoarthritis.Left shoulderdemonstrates moderate thickness intrasubstance tear of the footprint supraspinatus measuring approximately 7 mm x 4 mm. Subscapularis, infraspinatus and teres minor intact. Moderate AC joint osteoarthritis with bony edema. Normal glenohumeral joint articular cartilage. Biceps and labrum appear intact. IMPRESSION: 1. Left shoulder - partial thickness rotator cuff tear, moderate AC joint osteoarthritis 2. Cervicalcia - left sided 3. Right shoulder moderate AC joint osteoarthritis PLAN: Findings reviewed. Patient has tried Medrol Dosepak, cortisone injection of bilateral shoulders with mild relief for about 1 month, oral diclofenac. He may continue to use his oral diclofenac, follow-up yearly with his PCP for labs. Discussed proper lifting mechanics, avoiding heavy lifting or repetitive movements. He has an upcoming evaluation for his cervical spine, reminder for this appointment was provided today. He elected to proceed with repeat left shoulder cortisone injection today, he is going to write down what relief this injection provides him so we may best guide him on definitive treatment options. Discussed this may include left shoulder arthroscopy with rotator cuff repair, SADDCE. Follow-up in 3 months for recheck of his left shoulder. All of his concerns are addressed and he understands and agrees with the plan. Speech recognition application software developer software was used to create portions of this document. An attempt at proofreading has been made to minimize errors. Please call for corrections. Julia Flores PA-C [address] [place] [address] [address], [place], [address], [facility] 06/24/2024 08:59:48 5 text/html I am seeing the patient today under the supervision of Dr. Smith who was available but who did not see the patient. HPI: Patient is a pleasant 64 year old male who presents for evaluation of ongoing neck pain. Patient was recently seen in the office by one of my colleagues for left shoulder pain. He states he received a left shoulder injection at that appointment and has not a significant decrease in his neck and radicular symptoms. He states his pain today is a 2-3 out of 10 he has left sided neck pain with minimal to no shoulder pain at this time. He has been taking gabapentin and diclofenac prescribed by his primary care physician. Has not done any formal physical therapy for either shoulder or cervical spine TREATMENTS: As noted in HPI Past family, medical, social history and review of systems has been reviewed, updated and signed by me and is located in the patient s chart. Examination: The patient is well appearing, alert and oriented x3 and in no acute distress. Gait is not antalgic. Patient is able to transition from seated to standing position without difficulty.Inspection of the spine reveals no step off, deformity or overlying skin changes or atrophy.The spine is nontender over the paravertebral musculature. Nontender over the upper trapezius and SCM.Range of motion of the cervical spine is 90% and normalRange of motion of the shoulder is full with discomfort noted in the posterior aspect of the shoulder at endrange of motion on the left side.Strength in all upper extremity myotomes 5/5 bilaterally.Sensation intact.Re e xes normal 2+, brachial triceps, brachioradialis.De Dios's sign negative. X-rays ordered, obtained and reviewed at [facility], 2 views of the cervical spine reveals no fractures, instability or bony lesions. Degenerative disc disease noted most pacifically at C6-C7 and C7-T1 with endplate spurring changes. Impression/Plan: Neck pain with cervical radiculitis versus rotator cuff pathology. Patient was previously diagnosed with rotator cuff strain versus tendinitis at previous appointment. He is willing to trial a muscle relaxer at bedtime. Declines formal physical therapy for cervical spine or shoulder. States he has a follow-up appointment for his shoulder in August we will plan to follow-up for his spine in 8 weeks. Discussed with the patient if he has had significant alleviation of symptoms or pathology seems to be more targeted to his shoulder he does not have to follow-up in office can cancel this appointment. Otherwise we are happy to follow-up with him. Patient expressed understanding agreement plan all her questions asked and answered. [employer] speech recognition application software developer software was used to create portions of this document. An attempt at proofreading has been made to minimize errors. Please call for corrections. KRISTINA REEDER PA-C [address] [place] [address] [address], [place], [address], [facility] 07/19/2024 08:56:39 5 text/html I am seeing the patient today under the supervision of Dr. Salas who was available but did not see the patient. CLINICAL UPDATE:64-year-old cosjo-rmen-deeiqhnn male patient presents today for left shoulder and neck pain recheck. Last left shoulder cortisone injection 06/24/24 he reports provided excellent relief of both his shoulder and neck pain. HPI: Has been treated in 2023 for bilateral cervical radiculopathy C5-C6. Sent for PT and provided medrol dose pack, gabapentin. He reports this has improved.Bilateral shoulder pain that began worsening about a year ago. Localizes pain to the rotator cuff intervals, radiates down to his elbow at times. Pain is worse at night and any lifting of his arms. He has tried oral diclofenac with mild relief. He does have some neck pain, denies numbness/tingling down his upper extremities. Denies previous shoulder surgery. Past family, medical, social history and review of systems has been reviewed, updated and is located in the patient's chart.X-RAYS:Previous 4v x-rays of the Bilateral shoulders reviewed at [facility] today. Left shoulder demonstrates moderate AC joint degenerative changes, type II acromion, well-preserved glenohumeral joint space. Right shoulder demonstrates severe AC joint degenerative changes, type II acromion, well-preserved glenohumeral joint space.Previous c-spine x-ray from 2023 demonstrates moderate joint space narrowing C5-C7. MRI [place] 06-08-20[place] [facility] reviewed today demonstrates: Rotator cuff intact, no evidence of full-thickness tears. Biceps and labrum appear intact. Moderate AC joint osteoarthritis. Left shoulderdemonstrates moderate thickness intrasubstance tear of the footprint supraspinatus measuring approximately 7 mm x 4 mm. Subscapularis, infraspinatus and teres minor intact. Moderate AC joint osteoarthritis with bony edema. Normal glenohumeral joint articular cartilage. Biceps and labrum appear intact. IMPRESSION: 1. Left shoulder - partial thickness rotator cuff tear, moderate AC joint osteoarthritis 2. cervicalgia - left sided PLAN: Findings reviewed. Patient has tried Medrol Dosepak, cortisone injection of bilateral shoulders , oral diclofenac, gabapentin. He may continue to use his oral diclofenac, follow-up yearly with his PCP for labs. Discussed proper lifting mechanics, avoiding heavy lifting or repetitive movements. He elected to proceed with repeat left shoulder cortisone injection today. He does not want to proceed with surgical intervention at this time. Discussed this may include left shoulder arthroscopy with possible rotator cuff repair, NAZDCE. Follow-up in 3 months for recheck of his left shoulder. All of his concerns are addressed and he understands and agrees with the plan. Speech recognition application software developer software was used to create portions of this document. An attempt at proofreading has been made to minimize errors. Please call for corrections. Julia Hernandez PA-C [address] [place] [address] [address], [place], [address], [facility] 09/23/2024 17:05:51 5 text/html I am seeing the patient today under the supervision of Dr. Lopez who was available but who did not see the patient. HPI: Patient comes in for recheck of left shoulder pain. Was last seen by a colleague for underlying impingement with partial-thickness rotator cuff tearing and received a cortisone injection with good relief for the last 4 months. Pain is returned over the last couple weeks over the lateral brachium. Difficulty with overhead motions and reaching behind her back. Has had no new injuries no other modalities. Past family, medical, social history and review of systems has been reviewed, updated and is located in the patient s chart. Examination: The patient is well appearing and in no apparent distress. Alert and oriented x3. Gait is symmetric. Vital signs per intake sheet . Evaluation of the left shoulder has no effusion erythema or warmth. Good muscle bulk when compared bilaterally. Has supple range of motion of that shoulder. 5/5 strength rotator cuff and biceps tendon. Positive impingement arc negative cross body. Impression: Impingement left shoulder with partial-thickness rotator cuff tearing Plan: Nature diagnosis discussed with patient today. Both surgical and nonsurgical options are reviewed. At this time patient wishes to go forward with a repeat cortisone injection. Patient tolerated the procedure well. Postinjection precautions were reviewed. Follow-up as symptoms dictate. [facility] speech recognition application software developer software was used to create portions of this document. An attempt at proofreading has been made to minimize errors. Please call for corrections. Thai Dimas PA-C [address] [facility] [address], [place], [address], [facility] 03/04/2025 15:17:00 Care Team Name Role Member ID Specialty Address Phone [facility] Primary Care Provider [id number] [place] [address]
[2025-06-29] MEDS: Magnesium Sulfate/H2O 2 GM/50 ML PIGGYBACK IV (12:44)
--- NOTE | 2025-06-29 12:59 | ECG_ITS ---
Test Reason : SOB Blood Pressure : */* mmHG Vent. Rate : 106 BPM Atrial Rate : 106 BPM P-R Int : 136 ms QRS Dur : 90 ms QT Int : 386 ms P-R-T Axes : 71 45 44 degrees QTcB Int : 512 ms Sinus tachycardia Septal infarct , age undetermined Abnormal ECG When compared with ECG of 12-Jul-2017 10:39, No significant change was found Referred By: Gwen Burns Electronically Signed By: ADRYAN BROWN MD
[2025-06-29 13:03] LABS: Resp Syncy Virus RNA Qual PCR NEGATIVE (Negative); SARS COV2 PCR INHOUSE NEGATIVE (Negative)
[2025-06-29] MEDS: iohexoL 350 MG/ML 100 ML INFUS..BTL IV (13:32)
[2025-06-29 14:08] LABS: Lipase 17 U/L (8-78)
[2025-06-29 15:02] LABS: Reflex Lactate? Lactic Acid Added
[2025-06-29 15:24] LABS: Troponin-I High Sensitivity 2.8 ng/L (<3.5-35.0)
--- NOTE | 2025-06-29 15:27 | PC.NURSE ---
this RN assumed care of this pt @1500, pt noted to be sitting upright in stretcher, no apparent distress/respiratory distress noted, family at the bedside, call light within reach for safety, IVF running nearly completely infused
[2025-06-29 15:39] LABS: ~Lactic Acid-LAB USE ONLY 4.4 mmol/L (0.5-2.0)
[2025-06-29 16:23] LABS: NT Pro B Type Natriuretic Pept 91.1 pg/mL (<300)
--- NOTE | 2025-06-29 16:35 | PC.NURSE ---
Addendum entered by Kelechi Sharp RN 06/29/25 16:39: pt able to ambulate w/ brisk steady gait w/ no assitance, provider Rachid Gardner made aware Original Note: at this time this RN completed ambulation trail on this pt, pt SPO2 stable between 96-97% on room air during ambulation, pt denies any dizziness, fatigue, or SOB. pt states he only feels dizzy during episodes of coughing, states I feel better
[2025-06-29 17:16] LABS: Reflex Lactate? 2 Y
== END 2025-06-29 17:03 | disposition home or self-care (01) ==
PROVIDERS: Emergency Medicine; Physician Assistant Medical; Registered Nurse Emergency; Emergency Provider Emergency Medicine; PCP Dentist General Practice
DX: J45.901 Unspecified asthma with (acute) exacerbation (principal); R06.02 Shortness of breath; Z03.818 Encounter for observation for suspected exposure to other biological agents ruled out; Z79.899 Other long term (current) drug therapy
CPT/HCPCS: 36415; 71046; 71275; 74177; 80053; 82803; 83605; 83690; 83880; 84484; 85025; 87040; 87637; 93005; 94640; 96361; 96365; 96367; 96375; 99285; J1200; J2270; J2405; J2543; J2765; J2919; J3475; Q9967

== ENCOUNTER → 2025-06-29 11:51 | Outpatient (BNV) | payer MEDICARE, MEDICAID, SELFPAY | PROVIDERS: Emergency Provider Emergency Medicine; PCP Dentist General Practice; Visit Provider Radiology Diagnostic Radiology | DX: R06.00 Dyspnea, unspecified (principal); J98.11 Atelectasis; R05.9 Cough, unspecified | CPT/HCPCS: 71046; 71275 ==

== ENCOUNTER → 2025-06-29 12:59 | Outpatient (BNV) | payer MEDICARE, MEDICAID, SELFPAY | PROVIDERS: Emergency Provider Emergency Medicine; PCP Dentist General Practice; Visit Provider Internal Medicine Cardiovascular Disease | DX: R00.0 Tachycardia, unspecified (principal) | CPT/HCPCS: 93010 ==